=== PATIENT | male | born 1950 | race Caucasian/White ===

== ENCOUNTER 2019-10-09 22:06 | Inpatient (IN) | payer OTHER, BC ==
--- OUTSIDE RECORDS SUMMARY | 2019-10-09 22:08 | XMS REPORT ---
:1950 Author Organization [facility] Address [address] [place] [address] Care Team Providers Name Role Phone JUANY GUNTER Unavailable Unavailable AYESHA VALENTINO Unavailable Unavailable Problems This patient has no known problems. Allergies, Adverse Reactions, Alerts This patient has no known allergies or adverse reactions. Medications This patient has no known medications. Results Test Description Test Time Test Comments Text Results Atomic Results Result Comments TISSUE EXAM 2017-05-22 09:25:00 Surgical Pathology Report Case: [id number] Authorizing Provider: Juany Gunter MD Collected: 05/20/2017 1401 Ordering Location: [facility] PERIOPERATIVE Received: 05/20/2017 1623 SERVICES Pathologist: J Luis Leavitt MD Specimen: Appendix APPENDIX, LAPAROSCOPIC APPENDECTOMY: - CHRONIC INFLAMMATION, FIBROSIS, AND FAT NECROSIS OF PERIAPPENDICEAL ADIPOSE TISSUE Signing Pathologist Direct Phone Line: [phone] signed by J Luis Leavitt MD on 05/22/2017 at 9:25 [id number] with abscessAppendix Received fresh labeled "appendix" is a 4.5 cm in length x 1.0 cm in diameter, focally disrupted, vermiform appendix with attached mesoappendix.The serosal surface is purple-mclean to red, dusky, ragged and exhibits fibrous adhesions. Sectioning reveals a dilated lumen containing clotted blood.Section code: A1, parallel resection margin; A2, fulfillment representative sections of appendix. DB/ewPerformed BASIC METABOLIC PANEL 2017-05-21 05:40:00 Test Item Value Reference Range Comments SODIUM (BEAKER) (test 136 meq/L 136-145 zzpt=627) POTASSIUM (BEAKER) (test 4.9 meq/L 3.5-5.1 zxvl=368) CHLORIDE (BEAKER) (test 109 meq/L 98-107 nxvv=073) CO2 (BEAKER) (test ihmn=034) 19 meq/L 22-29 BLOOD UREA NITROGEN (BEAKER) 21 mg/dL 7-21 (test dhos=160) CREATININE (BEAKER) (test 1.22 mg/dL 0.57-1.25 oqoa=809) GLUCOSE RANDOM (BEAKER) 131 mg/dL 70-105 (test geyp=593) CALCIUM (BEAKER) (test 8.2 mg/dL 8.4-10.2 yokh=084) EGFR (BEAKER) (test 59 mL/min/1.73 sq m ESTIMATED GFR IS NOT aiee=5185) ACCURATE CREATININE CLEARANCE IN PREDICTING GLOMERULAR FILTRATION RATE. ESTIMATED GFR IS NOT APPLICABLE FOR DIALYSIS PATIENTS. CBC (HEMOGRAM ONLY)2017-05-21 05:35:00 Test Item Value Reference Range Comments WHITE BLOOD CELL COUNT (BEAKER) (test evmp=225) 11.1 K/ L 3.5-10.5 RED BLOOD CELL COUNT (BEAKER) (test llxj=362) 3.99 M/ L 4.63-6.08 HEMOGLOBIN (BEAKER) (test lujl=196) 12.4 GM/DL 13.7-17.5 HEMATOCRIT (BEAKER) (test uyjh=302) 36.8 % 40.1-51.0 MEAN CORPUSCULAR VOLUME (BEAKER) (test acmd=423) 92.2 fL 79.0-92.2 MEAN CORPUSCULAR HEMOGLOBIN (BEAKER) (test 31.1 pg 25.7-32.2 nrid=726) MEAN CORPUSCULAR HEMOGLOBIN CONC (BEAKER) (test 33.7 GM/DL 32.3-36.5 cdwa=459) RED CELL DISTRIBUTION WIDTH (BEAKER) (test 14.6 % 11.6-14.4 vxtg=455) PLATELET COUNT (BEAKER) (test bubx=534) 145 K/CU MM 150-450 MEAN PLATELET VOLUME (BEAKER) (test xruv=162) 9.6 fL 9.4-12.4 NUCLEATED RED BLOOD CELLS (BEAKER) (test 0 /100 WBC 0-0 wzno=775) HEPATIC FUNCTION [id number] 10:48:00 Test Item Value Reference Range Comments TOTAL PROTEIN (BEAKER) (test wxxi=558) 8.3 gm/dL 6.0-8.3 ALBUMIN (BEAKER) (test gvar=9029) 4.0 g/dL 3.5-5.0 BILIRUBIN TOTAL (BEAKER) (test ygzm=177) 0.9 mg/dL 0.2-1.2 BILIRUBIN DIRECT (BEAKER) (test wnly=503) 0.4 mg/dL 0.1-0.5 ALKALINE PHOSPHATASE (BEAKER) (test wptq=335) 49 U/L 40-150 AST (SGOT) (BEAKER) (test aywh=051) 30 U/L 5-34 ALT (SGPT) (BEAKER) (test mykm=449) 30 U/L 6-55 BASIC METABOLIC [id number] 10:48:00 Test Item Value Reference Range Comments SODIUM (BEAKER) (test 135 meq/L 136-145 jyhm=351) POTASSIUM (BEAKER) (test 4.0 meq/L 3.5-5.1 zpnm=475) CHLORIDE (BEAKER) (test 105 meq/L 98-107 kxaw=347) CO2 (BEAKER) (test 22 meq/L 22-29 xayo=649) BLOOD UREA NITROGEN 19 mg/dL 7-21 (BEAKER) (test mfhi=885) CREATININE (BEAKER) (test 1.19 mg/dL 0.57-1.25 mukz=848) GLUCOSE RANDOM (BEAKER) 104 mg/dL 70-105 (test fetg=524) CALCIUM (BEAKER) (test 8.8 mg/dL 8.4-10.2 ukap=539) EGFR (BEAKER) (test 61 mL/min/1.73 sq m ESTIMATED GFR IS NOT mtbo=6671) ACCURATE CREATININE CLEARANCE IN PREDICTING GLOMERULAR FILTRATION RATE. ESTIMATED GFR IS NOT APPLICABLE FOR DIALYSIS PATIENTS. CBC W/PLT COUNT & AUTO [id number] 10:41:00 Test Item Value Reference Range Comments WHITE BLOOD CELL COUNT (BEAKER) (test mudr=359) 7.1 K/ L 3.5-10.5 RED BLOOD CELL COUNT (BEAKER) (test kxzu=628) 4.68 M/ L 4.63-6.08 HEMOGLOBIN (BEAKER) (test ikxz=107) 14.5 GM/DL 13.7-17.5 HEMATOCRIT (BEAKER) (test rwxt=085) 43.0 % 40.1-51.0 MEAN CORPUSCULAR VOLUME (BEAKER) (test xwwn=091) 91.9 fL 79.0-92.2 MEAN CORPUSCULAR HEMOGLOBIN (BEAKER) (test 31.0 pg 25.7-32.2 iwex=478) MEAN CORPUSCULAR HEMOGLOBIN CONC (BEAKER) (test 33.7 GM/DL 32.3-36.5 stvr=578) RED CELL DISTRIBUTION WIDTH (BEAKER) (test 14.6 % 11.6-14.4 ntqh=271) PLATELET COUNT (BEAKER) (test hpkk=687) 175 K/CU MM 150-450 MEAN PLATELET VOLUME (BEAKER) (test dzyo=398) 9.5 fL 9.4-12.4 NUCLEATED RED BLOOD CELLS (BEAKER) (test 0 /100 WBC 0-0 zusx=417) NEUTROPHILS RELATIVE PERCENT (BEAKER) (test 42 % ujjp=678) LYMPHOCYTES RELATIVE PERCENT (BEAKER) (test 45 % jmva=601) MONOCYTES RELATIVE PERCENT (BEAKER) (test 11 % rxgd=181) EOSINOPHILS RELATIVE PERCENT (BEAKER) (test 2 % zqcu=572) BASOPHILS RELATIVE PERCENT (BEAKER) (test 1 % jruv=881) NEUTROPHILS ABSOLUTE COUNT (BEAKER) (test 2.96 K/ L 1.78-5.38 arve=979) LYMPHOCYTES ABSOLUTE COUNT (BEAKER) (test 3.20 K/ L 1.32-3.57 pttc=639) MONOCYTES ABSOLUTE COUNT (BEAKER) (test 0.75 K/ L 0.30-0.82 gclv=595) EOSINOPHILS ABSOLUTE COUNT (BEAKER) (test 0.14 K/ L 0.04-0.54 xlmt=586) BASOPHILS ABSOLUTE COUNT (BEAKER) (test 0.06 K/ L 0.01-0.08 chfm=836) IMMATURE GRANULOCYTES-RELATIVE PERCENT (BEAKER) 0 % 0-1 (test acru=8742) [id number] 10:23:00 Test Item Value Reference Range Comments PARTIAL THROMBOPLASTIN TIME (BEAKER) (test 28.3 seconds 22.5-36.0 ixnt=418) PROTHROMBIN [id number] 10:22:00 Test Item Value Reference Range Comments PROTIME (BEAKER) (test gwsm=365) 13.5 seconds 11.7-14.7 INR (BEAKER) (test zwtj=892) 1.0 <=5.9 RECOMMENDED COUMADIN/WARFARIN INR THERAPY RANGESSTANDARD DOSE: 2.0 - 3.0 Includes: PROPHYLAXIS forvenous thrombosis, systemic embolization; TREATMENT for venous thrombosis and/or pulmonary embolus.HIGH RISK: Target INR is 2.5-3.5 for patients with mechanical heart valves.[id number] 17:52:00 Test Item Value Reference Range Comments SODIUM (BEAKER) (test egfh=311) 138 meq/L 136-145 POTASSIUM (BEAKER) (test fryg=228) 4.5 meq/L 3.5-5.1 CHLORIDE (BEAKER) (test sbru=307) 104 meq/L 98-107 CO2 (BEAKER) (test joom=147) 23 meq/L 22-29 [id number] 17:34:00 Test Item Value Reference Range Comments GLUCOSE RANDOM (BEAKER) (test fhos=550) 105 mg/dL 70-105 Effective 08/17/2014: Reference Range Change-Adult onlyNew: 70-105 Previous : 70-110BUN AND [id number] 17:34:00 Test Item Value Reference Range Comments BLOOD UREA NITROGEN 16 mg/dL 7-21 (BEAKER) (test wypd=844) CREATININE (BEAKER) (test 1.05 mg/dL 0.57-1.25 axqz=694) EGFR (BEAKER) (test 70 mL/min/1.73 sq m ESTIMATED GFR IS NOT ratk=8571) ACCURATE CREATININE CLEARANCE IN PREDICTING GLOMERULAR FILTRATION RATE. ESTIMATED GFR IS NOT APPLICABLE FOR DIALYSIS PATIENTS. [id number] 16:54:00 Test Item Value Reference Range Comments HEMOGLOBIN (BEAKER) (test xwka=412) 13.7 GM/DL 13.7-17.5 BLOOD [id number] 06:00:00 Test Item Value Reference Range Comments CULTURE (BEAKER) (test gcin=1380) No growth in 5 days BLOOD [id number] 06:00:00 Test Item Value Reference Range Comments CULTURE (BEAKER) (test ipgt=7984) No growth in 5 days BODY FLUID CULTURE + GRAM [id number] 10:22:00 Test Item Value Reference Range Comments CULTURE (BEAKER) (test ESCHERICHIA COLI 3+ Escherichia coli hkwe=0108) Amikacin (test code=1) Ampicillin + Sulbactam (test code=6) Aztreonam (test code=32) Cefazolin (test code=9) Cefepime (test code=51) Cefoxitin (test code=68) Ceftazidime (test code=27) Ceftriaxone (test code=52) Ertapenem (test code=38) Gentamicin (test code=18) Levofloxacin (test code=22) Meropenem (test code=34) Nitrofurantoin (test code=23) Piperacillin + Tazobactam (test code=29) Tetracycline (test code=2) Tigecycline (test srau=398) Tobramycin (test code=25) Trimethoprim + Sulfamethoxazole (test code=47) CULTURE (BEAKER) (test 2+ Actinomyces species tzyi=4630) CULTURE (BEAKER) (test 2+ Viridans dyfu=8872) Streptococcus GRAM STAIN RESULT (BEAKER) 3+ WBCs (test kyue=1592) GRAM STAIN RESULT (BEAKER) 2+ gram positive (test cyzm=492611) branching rods GRAM STAIN RESULT (BEAKER) 3+ gram positive (test ftor=156461) cocci in chains and clusters GRAM STAIN RESULT (BEAKER) 1+ gram negative rods (test uqlb=565325) [id number] 05:29:00 Test Item Value Reference Range Comments PHOSPHORUS (BEAKER) (test firl=800) 3.0 mg/dL 2.3-4.7 [id number] 05:29:00 Test Item Value Reference Range Comments MAGNESIUM (BEAKER) (test fyce=559) 1.7 mg/dL 1.6-2.6 BASIC METABOLIC [id number] 05:29:00 Test Item Value Reference Range Comments SODIUM (BEAKER) (test 137 meq/L 136-145 sbeg=105) POTASSIUM (BEAKER) (test 3.6 meq/L 3.5-5.1 kplt=601) CHLORIDE (BEAKER) (test 104 meq/L 98-107 ahpr=545) CO2 (BEAKER) (test 24 meq/L 22-29 qqur=612) BLOOD UREA NITROGEN 12 mg/dL 7-21 (BEAKER) (test sdjk=944) CREATININE (BEAKER) (test 0.85 mg/dL 0.57-1.25 lcsc=065) GLUCOSE RANDOM (BEAKER) 98 mg/dL 70-105 (test wbxm=097) CALCIUM (BEAKER) (test 8.0 mg/dL 8.4-10.2 lsup=488) EGFR (BEAKER) (test 90 mL/min/1.73 sq m ESTIMATED GFR IS NOT npdk=4146) ACCURATE CREATININE CLEARANCE IN PREDICTING GLOMERULAR FILTRATION RATE. ESTIMATED GFR IS NOT APPLICABLE FOR DIALYSIS PATIENTS. CBC (HEMOGRAM ONLY)2017-02-27 05:12:00 Test Item Value Reference Range Comments WHITE BLOOD CELL COUNT (BEAKER) (test hdko=695) 9.6 K/ L 4.0-10.0 RED BLOOD CELL COUNT (BEAKER) (test tvjq=974) 3.74 M/ L 4.20-5.80 HEMOGLOBIN (BEAKER) (test cclb=020) 11.7 GM/DL 13.0-16.8 HEMATOCRIT (BEAKER) (test tjfe=757) 36.4 % 40.0-50.0 MEAN CORPUSCULAR VOLUME (BEAKER) (test iwro=831) 97.3 fL 82.0-98.0 MEAN CORPUSCULAR HEMOGLOBIN (BEAKER) (test 31.3 pg 27.0-33.0 atru=015) MEAN CORPUSCULAR HEMOGLOBIN CONC (BEAKER) (test 32.2 GM/DL 32.0-36.0 pmhe=174) RED CELL DISTRIBUTION WIDTH (BEAKER) (test 14.7 % 10.3-14.2 fywd=757) PLATELET COUNT (BEAKER) (test vwhh=890) 236 K/CU MM 150-430 MEAN PLATELET VOLUME (BEAKER) (test olup=448) 6.3 fL 6.5-10.5 NUCLEATED RED BLOOD CELLS (BEAKER) (test 0 /100 WBC 0-0 jsln=872) 0.00CBC W/PLT COUNT & AUTO [id number] 01:59:00 Test Item Value Reference Range Comments WHITE BLOOD CELL COUNT (BEAKER) (test vmdg=684) 18.9 K/ L 4.0-10.0 RED BLOOD CELL COUNT (BEAKER) (test ahmt=882) 4.83 M/ L 4.20-5.80 HEMOGLOBIN (BEAKER) (test fsxl=694) 14.8 GM/DL 13.0-16.8 HEMATOCRIT (BEAKER) (test ehvv=498) 46.7 % 40.0-50.0 MEAN CORPUSCULAR VOLUME (BEAKER) (test xmhz=620) 96.6 fL 82.0-98.0 MEAN CORPUSCULAR HEMOGLOBIN (BEAKER) (test 30.6 pg 27.0-33.0 grco=507) MEAN CORPUSCULAR HEMOGLOBIN CONC (BEAKER) (test 31.7 GM/DL 32.0-36.0 kpks=194) RED CELL DISTRIBUTION WIDTH (BEAKER) (test 15.5 % 10.3-14.2 lgqn=469) PLATELET COUNT (BEAKER) (test txmg=937) 316 K/CU MM 150-430 MEAN PLATELET VOLUME (BEAKER) (test pemz=975) 6.4 fL 6.5-10.5 NUCLEATED RED BLOOD CELLS (BEAKER) (test 0 /100 WBC 0-0 dqwt=211) NEUTROPHILS RELATIVE PERCENT (BEAKER) (test 84 % wqxa=826) LYMPHOCYTES RELATIVE PERCENT (BEAKER) (test 11 % grdi=673) MONOCYTES RELATIVE PERCENT (BEAKER) (test 5 % xguq=789) EOSINOPHILS RELATIVE PERCENT (BEAKER) (test 0 % hwvm=135) BASOPHILS RELATIVE PERCENT (BEAKER) (test 0 % ybvo=288) NEUTROPHILS ABSOLUTE COUNT (BEAKER) (test 15.70 K/ L 1.80-8.00 hzyf=842) LYMPHOCYTES ABSOLUTE COUNT (BEAKER) (test 2.14 K/ L 1.48-4.50 jjvk=760) MONOCYTES ABSOLUTE COUNT (BEAKER) (test 0.93 K/ L 0.00-1.30 udhm=604) EOSINOPHILS ABSOLUTE COUNT (BEAKER) (test 0.03 K/ L 0.00-0.50 zmiu=823) BASOPHILS ABSOLUTE COUNT (BEAKER) (test 0.01 K/ L 0.00-0.20 yzap=762) 0.000.610.000.000.550.000.000.000.000.000.000.000.000.000.500.000.000.000.00[facility] [id number] 01:50:00 Test Item Value Reference Range Comments MAGNESIUM (BEAKER) (test xgsl=723) 1.4 mg/dL 1.6-2.6 [id number] 01:50:00 Test Item Value Reference Range Comments PHOSPHORUS (BEAKER) (test ajtg=324) 2.5 mg/dL 2.3-4.7 BASIC METABOLIC [id number] 01:50:00 Test Item Value Reference Range Comments SODIUM (BEAKER) (test 134 meq/L 136-145 nnjl=015) POTASSIUM (BEAKER) (test 3.9 meq/L 3.5-5.1 xusg=953) CHLORIDE (BEAKER) (test 104 meq/L 98-107 luwk=264) CO2 (BEAKER) (test 21 meq/L 22-29 ryuq=519) BLOOD UREA NITROGEN 7 mg/dL 7-21 (BEAKER) (test zomx=201) CREATININE (BEAKER) (test 0.95 mg/dL 0.57-1.25 owtc=138) GLUCOSE RANDOM (BEAKER) 131 mg/dL 70-105 (test lstk=682) CALCIUM (BEAKER) (test 8.2 mg/dL 8.4-10.2 zjbl=506) EGFR (BEAKER) (test 79 mL/min/1.73 sq m ESTIMATED GFR IS NOT jnlp=9911) ACCURATE CREATININE CLEARANCE IN PREDICTING GLOMERULAR FILTRATION RATE. ESTIMATED GFR IS NOT APPLICABLE FOR DIALYSIS PATIENTS. T4, [id number] 07:12:00 Test Item Value Reference Range Comments FREE T4 (BEAKER) (test pxye=566) 0.99 ng/dL 0.70-1.48 CBC W/PLT COUNT & AUTO [id number] 06:55:00 Test Item Value Reference Range Comments WHITE BLOOD CELL COUNT (BEAKER) (test caup=142) 11.5 K/ L 4.0-10.0 RED BLOOD CELL COUNT (BEAKER) (test xuyq=634) 4.03 M/ L 4.20-5.80 HEMOGLOBIN (BEAKER) (test fnsr=494) 12.3 GM/DL 13.0-16.8 HEMATOCRIT (BEAKER) (test atxt=231) 38.9 % 40.0-50.0 MEAN CORPUSCULAR VOLUME (BEAKER) (test lnin=935) 96.6 fL 82.0-98.0 MEAN CORPUSCULAR HEMOGLOBIN (BEAKER) (test 30.6 pg 27.0-33.0 rdlj=726) MEAN CORPUSCULAR HEMOGLOBIN CONC (BEAKER) (test 31.7 GM/DL 32.0-36.0 hmsw=387) RED CELL DISTRIBUTION WIDTH (BEAKER) (test 15.2 % 10.3-14.2 jiqp=100) PLATELET COUNT (BEAKER) (test cxmu=231) 251 K/CU MM 150-430 MEAN PLATELET VOLUME (BEAKER) (test vrez=543) 6.3 fL 6.5-10.5 NUCLEATED RED BLOOD CELLS (BEAKER) (test 0 /100 WBC 0-0 wpxa=047) NEUTROPHILS RELATIVE PERCENT (BEAKER) (test 74 % ntrv=854) LYMPHOCYTES RELATIVE PERCENT (BEAKER) (test 16 % eicw=684) MONOCYTES RELATIVE PERCENT (BEAKER) (test 9 % qfbi=024) EOSINOPHILS RELATIVE PERCENT (BEAKER) (test 1 % taom=533) BASOPHILS RELATIVE PERCENT (BEAKER) (test 1 % pmgy=592) NEUTROPHILS ABSOLUTE COUNT (BEAKER) (test 8.49 K/ L 1.80-8.00 aate=209) LYMPHOCYTES ABSOLUTE COUNT (BEAKER) (test 1.80 K/ L 1.48-4.50 uymk=465) MONOCYTES ABSOLUTE COUNT (BEAKER) (test 0.98 K/ L 0.00-1.30 kuth=232) EOSINOPHILS ABSOLUTE COUNT (BEAKER) (test 0.13 K/ L 0.00-0.50 mdpx=614) BASOPHILS ABSOLUTE COUNT (BEAKER) (test 0.06 K/ L 0.00-0.20 qssd=631) 0.00TSH/FREE T4 IF [id number] 06:20:00 Test Item Value Reference Range Comments THYROID STIMULATING HORMONE (BEAKER) (test 7.55 uIU/mL 0.35-4.94 ylqk=153) [id number] 05:53:00 Test Item Value Reference Range Comments PHOSPHORUS (BEAKER) (test uwny=872) 2.9 mg/dL 2.3-4.7 [id number] 05:53:00 Test Item Value Reference Range Comments MAGNESIUM (BEAKER) (test seer=973) 1.6 mg/dL 1.6-2.6 BASIC METABOLIC [id number] 05:53:00 Test Item Value Reference Range Comments SODIUM (BEAKER) (test 138 meq/L 136-145 fczo=806) POTASSIUM (BEAKER) (test 3.6 meq/L 3.5-5.1 xyhi=360) CHLORIDE (BEAKER) (test 107 meq/L 98-107 xnig=568) CO2 (BEAKER) (test 23 meq/L 22-29 mmem=139) BLOOD UREA NITROGEN 8 mg/dL 7-21 (BEAKER) (test zqhk=909) CREATININE (BEAKER) (test 0.90 mg/dL 0.57-1.25 flnd=421) GLUCOSE RANDOM (BEAKER) 101 mg/dL 70-105 (test yojy=189) CALCIUM (BEAKER) (test 8.0 mg/dL 8.4-10.2 zdqa=811) EGFR (BEAKER) (test 84 mL/min/1.73 sq m ESTIMATED GFR IS NOT jxjr=8483) ACCURATE CREATININE CLEARANCE IN PREDICTING GLOMERULAR FILTRATION RATE. ESTIMATED GFR IS NOT APPLICABLE FOR DIALYSIS PATIENTS. PROTHROMBIN [id number] 18:32:00 Test Item Value Reference Range Comments PROTIME (BEAKER) (test ldae=988) 15.5 seconds 11.7-14.7 INR (BEAKER) (test kadc=958) 1.2 <=5.9 RECOMMENDED COUMADIN/WARFARIN INR THERAPY RANGESSTANDARD DOSE: 2.0 - 3.0 Includes: PROPHYLAXIS forvenous thrombosis, systemic embolization; TREATMENT for venous thrombosis and/or pulmonary embolus.HIGH RISK: Target INR is 2.5-3.5 for patients with mechanical heart valves.BASIC METABOLIC [id number] 15:20: 00 Test Item Value Reference Range Comments SODIUM (BEAKER) (test 140 meq/L 136-145 bjax=602) POTASSIUM (BEAKER) (test 3.5 meq/L 3.5-5.1 tqdw=776) CHLORIDE (BEAKER) (test 109 meq/L 98-107 jott=547) CO2 (BEAKER) (test 23 meq/L 22-29 hgoa=701) BLOOD UREA NITROGEN 7 mg/dL 7-21 (BEAKER) (test lnma=607) CREATININE (BEAKER) (test 0.84 mg/dL 0.57-1.25 tfkw=235) GLUCOSE RANDOM (BEAKER) 111 mg/dL 70-105 (test jnnb=378) CALCIUM (BEAKER) (test 8.1 mg/dL 8.4-10.2 zoqp=516) EGFR (BEAKER) (test 91 mL/min/1.73 sq m ESTIMATED GFR IS NOT ghck=5287) ACCURATE CREATININE CLEARANCE IN PREDICTING GLOMERULAR FILTRATION RATE. ESTIMATED GFR IS NOT APPLICABLE FOR DIALYSIS PATIENTS. CBC W/PLT COUNT & AUTO [id number] 15:03:00 Test Item Value Reference Range Comments WHITE BLOOD CELL COUNT (BEAKER) (test fdhq=065) 10.6 K/ L 4.0-10.0 RED BLOOD CELL COUNT (BEAKER) (test wyrx=144) 4.07 M/ L 4.20-5.80 HEMOGLOBIN (BEAKER) (test aljw=649) 13.1 GM/DL 13.0-16.8 HEMATOCRIT (BEAKER) (test pgeh=799) 39.1 % 40.0-50.0 MEAN CORPUSCULAR VOLUME (BEAKER) (test hagr=202) 96.1 fL 82.0-98.0 MEAN CORPUSCULAR HEMOGLOBIN (BEAKER) (test 32.2 pg 27.0-33.0 yksk=959) MEAN CORPUSCULAR HEMOGLOBIN CONC (BEAKER) (test 33.5 GM/DL 32.0-36.0 eitd=204) RED CELL DISTRIBUTION WIDTH (BEAKER) (test 13.5 % 10.3-14.2 noth=144) PLATELET COUNT (BEAKER) (test zhkg=574) 261 K/CU MM 150-430 MEAN PLATELET VOLUME (BEAKER) (test rklr=371) 6.0 fL 6.5-10.5 NUCLEATED RED BLOOD CELLS (BEAKER) (test 0 /100 WBC 0-0 qcmz=363) NEUTROPHILS RELATIVE PERCENT (BEAKER) (test 73 % uifm=343) LYMPHOCYTES RELATIVE PERCENT (BEAKER) (test 17 % kjbt=952) MONOCYTES RELATIVE PERCENT (BEAKER) (test 8 % jtds=666) EOSINOPHILS RELATIVE PERCENT (BEAKER) (test 2 % jtrq=495) BASOPHILS RELATIVE PERCENT (BEAKER) (test 0 % ygqc=010) NEUTROPHILS ABSOLUTE COUNT (BEAKER) (test 7.72 K/ L 1.80-8.00 rmrh=741) LYMPHOCYTES ABSOLUTE COUNT (BEAKER) (test 1.79 K/ L 1.48-4.50 imgg=045) MONOCYTES ABSOLUTE COUNT (BEAKER) (test 0.90 K/ L 0.00-1.30 kqtd=041) EOSINOPHILS ABSOLUTE COUNT (BEAKER) (test 0.17 K/ L 0.00-0.50 dfqo=976) BASOPHILS ABSOLUTE COUNT (BEAKER) (test 0.02 K/ L 0.00-0.20 hwau=552) 0.00
[2019-10-09] MEDS ORDERED: FAMOTIDINE 20 MG/2 ML VIAL IV ONE (23:13)
[2019-10-09] MEDS ORDERED: MORPHINE 2 MG/ML SYR ONE ×2 (23:13→23:57)
[2019-10-09] MEDS ORDERED: NA CHLORIDE 0.9% 1,000 ML ONE (23:13)
[2019-10-09 23:14] LABS: Absolute Lymphocytes (CBC) 1.5 K/uL (0.7-4.9); Basophils % 0.8 % (0-1.3); Hematocrit 40.4 % (39.6-49.0); MPV 7.7 fL (7.6-11.3); RBC Red Blood Cell Count 4.27 M/uL (4.33-5.43)
[2019-10-09 23:33] LABS: Albumin 3.6 g/dL (3.4-5.0); Bilirubin Direct 0.4 mg/dL (0-0.2); Bilirubin Total 1.1 mg/dL (0.2-1.0); Potassium 3.8 mmol/L (3.5-5.1); Protein, Total 8.1 g/dL (6.4-8.2)
[2019-10-10] MEDS ORDERED: NA CHLORIDE 0.9% 1,000 ML ONE (00:12)
[2019-10-10] MEDS ORDERED: MORPHINE 2 MG/ML SYR ONE (01:36)
--- NOTE | 2019-10-10 03:18 | EDPHYS ---
Physician Documentation [facility] Name: Itz Bates Age: 69 yrs Sex: Male : 1950 Arrival Date: 10/09/2019 Time: 22:11 Bed 7 Private MD: ED Physician Nathan Robert HPI: 10/10 00:37 This 69 yrs old Male presents to ER via Wheelchair with complaints of kdr Abdominal Pain. 00:37 The patient presents with abdominal pain in the epigastric area, in the upper abdomen. kdr Onset: The symptoms/episode began/occurred this morning. The symptoms radiate to left back, left trapezius and left scapular area. Associated signs and symptoms: Pertinent positives: nausea, Pertinent negatives: chest pain, constipation, diarrhea, palpitations, shortness of breath, testicular pain, vomiting, vomiting blood. The symptoms are described as achy, crampy, steady, vague. Modifying factors: The symptoms are alleviated by nothing, the symptoms are aggravated by nothing. Severity of pain: At its worst the pain was mild just prior to arrival, in the emergency department the pain is unchanged. The patient has not experienced similar symptoms in the past. The patient has not recently seen a physician. Historical: - Allergies: 10/09 22:21 NKDA; mg2 - Home Meds: 22:21 furosemide 40 mg Oral tab 1 tab 2 times per day [Active]; levothyroxine 50 mcg tab 1 mg2 tab once daily [Active]; losartan 100 mg Oral tab [Active]; potassium chloride 20 mEq Oral TbER 1 tab once daily [Active]; pravastatin 40 mg Oral tab 1 tab once daily [Active]; Xarelto 20 mg Oral tab 1 tab once daily [Active]; - PMHx: 22:21 CHF; Hypertension; Pacemaker; mg2 - PSHx: 22:21 Appendectomy; open heart surgery; mg2 - Immunization history:: Flu vaccine is up to date. - Social history:: Smoking status: Patient/guardian denies using tobacco, Patient uses alcohol, on a daily basis. Patient/guardian denies using street drugs, IV drugs. - Ebola Screening: : No symptoms or risks identified at this time. ROS: 10/10 00:37 Constitutional: Negative for fever, chills, and weight loss, Eyes: Negative for injury, kdr pain, redness, and discharge, Neck: Negative for injury, pain, and swelling, Cardiovascular: Negative for chest pain, palpitations, and edema, Respiratory: Negative for shortness of breath, cough, wheezing, and pleuritic chest pain, Back: Negative for injury and pain, : Negative for injury, bleeding, discharge, and swelling, MS/Extremity: Negative for injury and deformity, Skin: Negative for injury, rash, and discoloration, Neuro: Negative for headache, weakness, numbness, tingling, and seizure activity. Psych: Negative for depression, anxiety, suicide ideation, homicidal ideation, and hallucinations, Allergy/Immunology: Negative for hives, rash, and allergies, Endocrine: Negative for neck swelling, polydipsia, polyuria, polyphagia, and marked weight changes, Hematologic/Lymphatic: Negative for swollen nodes, abnormal bleeding, and unusual bruising. Abdomen/GI: Positive for abdominal pain, nausea, Negative for constipation, abdominal cramps, abdominal distension, anorexia, dysphagia, hematemesis, black/tarry stool, rectal pain, flatulence. Exam: 00:37 Constitutional: This is a well developed, well nourished patient who is awake, alert, kdr and in no acute distress. Head/Face: Normocephalic, atraumatic. Eyes: Pupils equal round and reactive to light, extra-ocular motions intact. Lids and lashes normal. Conjunctiva and sclera are non-icteric and not injected. Cornea within normal limits. Periorbital areas with no swelling, redness, or edema. Neck: Trachea midline, no thyromegaly or masses palpated, and no cervical lymphadenopathy. Supple, full range of motion without nuchal rigidity, or vertebral point tenderness. No Meningismus. Chest/axilla: Normal chest wall appearance and motion. Nontender with no deformity. No lesions are appreciated. Cardiovascular: Regular rate and rhythm with a normal S1 and S2. No gallops, murmurs, or rubs. Normal PMI, no JVD. No pulse deficits. Respiratory: Lungs have equal breath sounds bilaterally, clear to auscultation and percussion. No rales, rhonchi or wheezes noted. No increased work of breathing, no retractions or nasal flaring. Back: No spinal tenderness. No costovertebral tenderness. Full range of motion. Skin: Warm, dry with normal turgor. Normal color with no rashes, no lesions, and no evidence of cellulitis. MS/ Extremity: Pulses equal, no cyanosis. Neurovascular intact. Full, normal range of motion. Neuro: Awake and alert, GCS 15, oriented to person, place, time, and situation. Cranial nerves II-XII grossly intact. Motor strength 5/5 in all extremities. Sensory grossly intact. Cerebellar exam normal. Normal gait. Psych: Awake, alert, with orientation to person, place and time. Behavior, mood, and affect are within normal limits. 00:37 Abdomen/GI: Inspection: distension, obese Bowel sounds: diminished, in all quadrants, Palpation: soft, mild abdominal tenderness, in the epigastric area, right upper quadrant and left upper quadrant. Vital Signs: 10/09 22:19 BP 138 / 89; Pulse 71; Resp 18; Temp 98.3; Pulse Ox 100% on R/A; Weight 154.22 kg; mg2 Height 6 ft. 1 in. (185.42 cm); Pain 10/10; 23:00 BP 145 / 50; Pulse 73; Resp 18; Pulse Ox 97% on R/A; Pain 10/10; lp1 23:45 BP 151 / 61; Pulse 79; Resp 18; Pulse Ox 95% on R/A; lp1 10/10 00:15 BP 161 / 81; Pulse 84; Resp 18; Pulse Ox 94% on 2 lpm NC; lp1 01:30 BP 157 / 87; Pulse 83; Resp 18; Pulse Ox 95% on 2 lpm NC; lp1 02:15 BP 153 / 77; Pulse 89; Resp 18; Pulse Ox 95% on 2 lpm NC; lp1 03:00 BP 159 / 76; Pulse 88; Resp 20; Pulse Ox 95% on 2 lpm NC; lp1 03:45 BP 150 / 84; Pulse 85; Resp 18; Pulse Ox 95% on 2 lpm NC; lp1 04:30 BP 156 / 93; Pulse 88; Resp 18; Temp 97.6(O); Pulse Ox 97% on 2 lpm NC; lp1 10/09 22:19 Body Mass Index 44.86 (154.22 kg, 185.42 cm) mg2 MDM: 00:37 Data reviewed: vital signs, nurses notes, lab test result(s). Counseling: I had a kdr detailed discussion with the patient and/or guardian regarding: the historical points, exam findings, and any diagnostic results supporting the discharge/admit diagnosis, lab results, radiology results. 03:18 Patient medically screened. [facility] 10/09 22:36 Order name: Basic Metabolic Panel; Complete Time: 00:42 kdr 10/09 22:36 Order name: CBC with Diff; Complete Time: 00:42 kdr 10/09 22:36 Order name: Creatinine for Radiology; Complete Time: 00:42 kdr 10/09 22:36 Order name: Hepatic Function; Complete Time: 00:42 kdr 10/09 22:36 Order name: Lipase; Complete Time: 00:42 kdr 10/09 23:55 Order name: CT Abd/Pelvis - IV Contrast Only kdr 10/09 22:36 Order name: IV Saline Lock; Complete Time: 23:07 kdr 10/09 22:36 Order name: Labs collected and sent; Complete Time: 23:07 kdr Administered Medications: 10/09 23:20 Drug: NS 0.9% 1000 ml Route: IV; Rate: 1 bolus; Site: right antecubital; 1 10/10 00:12 Follow up: IV Status: Completed infusion; IV Intake: 1000ml 1 10/09 23:20 Drug: morphine 4 mg Route: IVP; Site: right antecubital; 1 10/10 00:00 Follow up: Response: Pain is decreased 1 10/09 23:20 Drug: Pepcid 20 mg Route: IVP; Site: right antecubital; 1 10/10 00:00 Follow up: Response: No adverse reaction 1 10/09 23:59 Drug: morphine 4 mg {Note: RASS 0.} Route: IVP; Site: right antecubital; 1 10/10 00:11 Follow up: Response: Pain is decreased; RASS: Drowsy (-1) lp1 00:12 Drug: NS 0.9% 1000 ml Route: IV; Rate: 1 bolus; Site: right antecubital; 1 01:54 Follow up: IV Status: Completed infusion; IV Intake: 1000ml lp1 01:38 Drug: morphine 4 mg {Note: RASS 1.} Route: IVP; Site: right antecubital; 1 02:00 Follow up: Response: Pain is decreased; RASS: Alert and Calm (0) 1 Disposition: 10/10/19 03:18 Hospitalization ordered by Mac Patrick for Inpatient Admission. Preliminary diagnosis are Abdominal and pelvic pain, Cholecystitis. - Bed requested for Telemetry/MedSurg (Inpatient). - Status is Inpatient Admission. lp1 - Condition is Fair. - Problem is new. - Symptoms have improved. UTI on Admission? No Signatures: Dispatcher [employer] EDMS Nathan Robert MD MD kdr Nadja Rodriguez RN RN lp1 Ange Hanna RN RN Constantino Lundy RN RN mg2 Corrections: (The following items were deleted from the chart) 04:34 03:18 Hospitalization Ordered by Mac Patrick for Inpatient Admission. Preliminary cg diagnosis is Abdominal and pelvic pain; Cholecystitis. Bed requested for Telemetry/MedSurg (Inpatient). Status is Inpatient Admission. Condition is Fair. Problem is new. Symptoms have improved. UTI on Admission? No. kdr 04:57 04:34 10/10/2019 03:18 Hospitalization Ordered by Mac Patrick for Inpatient lp1 Admission. Preliminary diagnosis is Abdominal and pelvic pain; Cholecystitis. Bed requested for Telemetry/MedSurg (Inpatient). Status is Inpatient Admission. Condition is Fair. Problem is new. Symptoms have improved. UTI on Admission? No. cg
--- NOTE | 2019-10-10 03:18 | ER ---
Nurse's Notes [facility] Name: Itz Bates Age: 69 yrs Sex: Male : 1950 Arrival Date: 10/09/2019 Time: 22:11 Bed 7 Private MD: Diagnosis: Abdominal and pelvic pain;Cholecystitis Presentation: 10/09 22:16 Presenting complaint: Patient states: i came from a cruise today and and lindsey been mg2 having diffused abdominal pain since then. i felt clammy an hour ago. dernies chest pain and n/v. Transition of care: patient was not received from another setting of care. Onset of symptoms was October 09, 2019. Risk Assessment: Do you want to hurt yourself or someone else? Patient reports no desire to harm self or others. Initial Sepsis Screen: Does the patient meet any 2 criteria? No. Patient's initial sepsis screen is negative. Does the patient have a suspected source of infection? No. Patient's initial sepsis screen is negative. Care prior to arrival: None. 22:16 Method Of Arrival: Wheelchair mg2 22:16 Acuity: RAMON 3 mg2 Historical: - Allergies: 22:21 NKDA; mg2 - Home Meds: 22:21 furosemide 40 mg Oral tab 1 tab 2 times per day [Active]; levothyroxine 50 mcg tab 1 mg2 tab once daily [Active]; losartan 100 mg Oral tab [Active]; potassium chloride 20 mEq Oral TbER 1 tab once daily [Active]; pravastatin 40 mg Oral tab 1 tab once daily [Active]; Xarelto 20 mg Oral tab 1 tab once daily [Active]; - PMHx: 22:21 CHF; Hypertension; Pacemaker; mg2 - PSHx: 22:21 Appendectomy; open heart surgery; mg2 - Immunization history:: Flu vaccine is up to date. - Social history:: Smoking status: Patient/guardian denies using tobacco, Patient uses alcohol, on a daily basis. Patient/guardian denies using street drugs, IV drugs. - Ebola Screening: : No symptoms or risks identified at this time. Screenin:05 Abuse screen: Denies threats or abuse. Denies injuries from another. Nutritional lp1 screening: No deficits noted. Tuberculosis screening: No symptoms or risk factors identified. Fall Risk None identified. Assessment: 23:00 General: Appears uncomfortable, Behavior is appropriate for age. Pain: Complains of lp1 pain in right upper quadrant and left upper quadrant Pain radiates to back Pain currently is 10 out of 10 on a pain scale. Quality of pain is described as sharp, stabbing, Pain began gradually. Neuro: Level of Consciousness is awake, alert, obeys commands, Oriented to person, place, situation. Cardiovascular: Patient's skin is warm and dry. Respiratory: Respiratory effort is even, unlabored. GI: Abdomen is round Bowel sounds present X 4 quads. Abdomen is tender to palpation in right upper quadrant and left upper quadrant. : No signs and/or symptoms were reported regarding the genitourinary system. EENT: No signs and/or symptoms were reported regarding the EENT system. Derm: Skin is pink, warm \T\ dry. Musculoskeletal: No deficits noted. 10/10 00:12 Reassessment: While sleeping, patient 88% on RA; Patient placed on 2L via NC, O2 at 96%.lp1 00:24 Reassessment: Patient states pain decreased at this time; Aware of pending transfer to [facility] radiology for CT. 01:30 Reassessment: Patient returned from CT at this time; States pain to abdomen returning, lp1 Provider notified. 02:30 Reassessment: Patient appears in no apparent distress at this time. Patient and/or lp1 family updated on plan of care and expected duration. Pain level reassessed. Patient resting, eyes closed, respirations unlabored; daughter at bedside. 03:15 Reassessment: Dr. Robert at bedside to discuss results wit patient and daughter; lp1 Demonstrates understanding of pending admission and NPO status. 03:30 Reassessment: Family at bedside going home at this time; Contact info for daughters lp1 left with nurse; Tony- [phone]; Nisha- [phone]. 04:05 Reassessment: Dr. Patrick at bedside. 1 Vital Signs: 10/09 22:19 BP 138 / 89; Pulse 71; Resp 18; Temp 98.3; Pulse Ox 100% on R/A; Weight 154.22 kg; mg2 Height 6 ft. 1 in. (185.42 cm); Pain 07/09; 23:00 BP 145 / 50; Pulse 73; Resp 18; Pulse Ox 97% on R/A; Pain 07/09; lp1 23:45 BP 151 / 61; Pulse 79; Resp 18; Pulse Ox 95% on R/A; lp1 10/10 00:15 BP 161 / 81; Pulse 84; Resp 18; Pulse Ox 94% on 2 lpm NC; lp1 01:30 BP 157 / 87; Pulse 83; Resp 18; Pulse Ox 95% on 2 lpm NC; lp1 02:15 BP 153 / 77; Pulse 89; Resp 18; Pulse Ox 95% on 2 lpm NC; lp1 03:00 BP 159 / 76; Pulse 88; Resp 20; Pulse Ox 95% on 2 lpm NC; lp1 03:45 BP 150 / 84; Pulse 85; Resp 18; Pulse Ox 95% on 2 lpm NC; lp1 04:30 BP 156 / 93; Pulse 88; Resp 18; Temp 97.6(O); Pulse Ox 97% on 2 lpm NC; lp1 10/09 22:19 Body Mass Index 44.86 (154.22 kg, 185.42 cm) mg2 ED Course: 10/09 22:11 Patient arrived in ED. jg7 22:19 Triage completed. mg2 22:22 Arm band placed on. mg2 22:36 Nathan Robert MD is Attending Physician. kdr 22:41 Nadja Rodriguez, DEANNE is Primary Nurse. lp1 23:00 Initial lab(s) drawn, by me, sent to lab. Accessed ,peripheral vein via ultrasound, lp1 utilizing static ultrasound technique using ,sterile technique, per hospital protocol. Clean \T\ dry. Good blood return. Flushes easily. 20g IV to R AC. 23:05 Patient has correct armband on for positive identification. Placed in gown. Bed in low lp1 position. Pulse ox on. NIBP on. 10/10 02:36 CT Abd/Pelvis - IV Contrast Only In Process Unspecified. EDMS 03:17 Mac Patrick is Hospitalizing Provider. kdr 03:17 No provider procedures requiring assistance completed. lp1 04:37 Patient admitted, IV remains in place. lp1 Administered Medications: 10/09 23:20 Drug: NS 0.9% 1000 ml Route: IV; Rate: 1 bolus; Site: right antecubital; lp1 10/10 00:12 Follow up: IV Status: Completed infusion; IV Intake: 1000ml lp1 10/09 23:20 Drug: morphine 4 mg Route: IVP; Site: right antecubital; lp1 10/10 00:00 Follow up: Response: Pain is decreased lp1 10/09 23:20 Drug: Pepcid 20 mg Route: IVP; Site: right antecubital; lp1 10/10 00:00 Follow up: Response: No adverse reaction lp1 10/09 23:59 Drug: morphine 4 mg {Note: RASS 0.} Route: IVP; Site: right antecubital; lp1 10/10 00:11 Follow up: Response: Pain is decreased; RASS: Drowsy (-1) lp1 00:12 Drug: NS 0.9% 1000 ml Route: IV; Rate: 1 bolus; Site: right antecubital; lp1 01:54 Follow up: IV Status: Completed infusion; IV Intake: 1000ml lp1 01:38 Drug: morphine 4 mg {Note: RASS 1.} Route: IVP; Site: right antecubital; lp1 02:00 Follow up: Response: Pain is decreased; RASS: Alert and Calm (0) lp1 Intake: 00:12 IV: 1000ml; Total: 1000ml. lp1 01:54 IV: 1000ml; Total: 2000ml. lp1 Outcome: 03:18 Decision to Hospitalize by Provider. kdr 04:39 Condition: stable lp1 04:39 Instructed on the need for admit. 04:46 Admitted to Tele accompanied by tech, room 414, with chart, Report called to DEANNE Neumann lp1 04:57 Patient left the ED. lp1 Signatures: Dispatcher [employer] EDMS Nathan Robert MD MD kdr Pena, Laura, RN RN lp1 Constantino Lundy RN RN [facility] Evelyn Kauffmang7 Corrections: (The following items were deleted from the chart) 04:50 03:30 Reassessment: Family at bedside going home at this time; Contact info for lp1 daughters left with nurse; Tony- [phone]; Nisha- [phone] lp1
--- NOTE | 2019-10-10 04:20 | P.HP ---
Certification for Inpatient Patient admitted to: Inpatient With expected LOS: >2 Midnights Practitioner: I am a practitioner with admitting privileges, knowledge of patient current condition, hospital course, and medical plan of care. Services: Services provided to patient in accordance with Admission requirements found in Title 42 Section 412.3 of the Code of Federal Regulations Patient History Date of Service: 10/10/19 Reason for admission: Abdominal pain History of Present Illness: 69-year-old morbidly obese man with a history of congestive heart failure, unknown EF, hypertension and hyperlipidemia presented to emergency department with a complaint of abdominal pain of onset yesterday. Patient described diffuse abdominal pain, maximum intensity 10/10. He just returned from a cruise ship. He reports an episode of diarrhea on the cruise ship. He denied any fever, nausea or vomiting. CT abdomen and pelvis done in the ED report possible inflamed gallbladder. He has no leukocytosis and does not meet criteria for sepsis. Patient is admitted for further management. Allergies No Known Drug Lalit Allergy (Uncoded 02/23/17 06:45) Unknown No Known Drug Allergi Allergy (Uncoded 02/25/16 20:02) Unknown No Known Drug Allergies Allergy (Uncoded 10/21/17 03:31) Unknown Home Medications: Furosemide [Lasix*] 40 mg PO BID 10/10/19 Levothyroxine [Synthroid*] 50 mcg PO DAILY 10/10/19 Losartan Potassium 100 mg PO DAILY 10/10/19 Potassium Chloride 20 meq PO DAILY 10/10/19 Pravastatin Sodium 40 mg PO DAILY 10/10/19 Rivaroxaban [Xarelto*] 20 mg PO DAILY 10/10/19 - Past Medical/Surgical History Diabetic: No -: Hypertension -: Congestive heart failure -: Hypothyroidism -: Hyperlipidemia -: Presence of pacemaker -: Appendectomy -: Open-heart surgery -: Status post pacemaker - Family History Family History: Reviewed- Non-Contributory - Social History Smoking Status: Never smoker Alcohol use: Yes CD- Drugs: No Caffeine use: No Place of Residence: Home Review of Systems Other: General: No fever, no malaise, no unintentional weight loss. Eyes: No eye discharge, Respiratory: No cough, no shortness of breath. CVS: No chest pain, no palpitation, no lightheadedness. Genitourinary: No dysuria, no urinary frequency, no incontinence, no hematuria. Musculoskeletal: No joint pains, or joint swelling, no gait instability. Neurology: No headache, no asymmetric weakness, no problem with swallowing. Except as documented, all other systems reviewed and negative. Physical Examination - Physical Exam General: Alert, In no apparent distress, Oriented x3, Obese HEENT: PERRLA, Mucous membr. moist/pink, Sclerae nonicteric Neck: Supple, JVD not distended Respiratory: Clear to auscultation bilaterally, Normal air movement Cardiovascular: Regular rate/rhythm, Normal S1 S2, Edema (1+ bilateral ankle pitting edema) Capillary refill: <2 Seconds Gastrointestinal: Normal bowel sounds, Non-distended, Tenderness (Diffuse tenderness, worse in the upper quadrant.) Musculoskeletal: No erythema Integumentary: No rashes, No erythema Neurological: Normal speech, Normal strength at 5/5 x4 extr - Studies Laboratory Data (last 24 hrs) 10/09/19 23:00: Creatinine 1.37 H 10/09/19 23:00: WBC 9.6, Hgb 14.1, Hct 40.4, Plt Count 173 10/09/19 23:00: Sodium 136, Potassium 3.8, BUN 16, Creatinine 1.33 H, Glucose 167 H, Total Bilirubin 1.1 H, AST 34, ALT 40, Alkaline Phosphatase 42 L, Lipase 67 L Assessment and Plan - Problems (Diagnosis) (1) Acute cholecystitis Current Visit: Yes Status: Acute (2) Congestive heart failure Current Visit: Yes Status: Chronic (3) Hypertension Current Visit: Yes Status: Chronic (4) Chronic anticoagulation Current Visit: Yes Status: Chronic - Plan Admit to the medical floor Start IV antibiotics Consult general surgery-Dr. Ashley Keep him NPO for possible lap cholecystectomy. Hold Xarelto. Bridge with heparin drip if patient is not able to undergo surgery tomorrow. No active cardiac disease. No echocardiogram on file. Obtain an echocardiogram to assess LV function Continue home medications for other stable medical problems. - Advance Directives Does patient have a Living Will: No Does patient have a Durable POA for Healthcare: No
[2019-10-10] MEDS: MORPHINE 2 MG/ML SYR IV PRN ×5 (05:35→22:29)
[2019-10-10] MEDS: NA CHLORIDE 0.9% 1,000 ML IV SCH (05:36)
[2019-10-10] MEDS: ONDANSETRON 4 MG/2 ML VIAL IV PRN ×2 (05:36→11:54)
[2019-10-10] MEDS ORDERED: KCL 20 MEQ/100 mL IVPB 20 MEQ/100 ML BAG IV ONE (08:00)
[2019-10-10] MEDS ORDERED: CEFTRIAXONE 1 GM/NS 50 ML 1 GM/50 ML BAG IV SCH (09:00)
[2019-10-10] MEDS ORDERED: CEFTRIAXONE/SWI 1gm 1 GM/10 ML SYR IVP SCH (09:00)
[2019-10-10 09:15] LABS: Urine Appearance CLEAR; Urine Bilirubin NEGATIVE (NEG); Urine Blood 2+ (NEG); Urine Color YELLOW; Urine Glucose NEGATIVE (NEG); Urine Protein NEGATIVE (NEG); Urine Specific Gravity >=1.030 (1.005-1.030)
[2019-10-10 09:37] LABS: Urine Microscopic Reflex ORDER UMIC
[2019-10-10 10:02] LABS: Urine Bacteria NONE SEEN /HPF (NONE SEEN); Urine RBC 20-50 /HPF (NONE SEEN)
[2019-10-10] MEDS ORDERED: LABETALOL 20 MG/4ML SYRINGE IV ONE ×2 (13:26→13:45)
[2019-10-10] MEDS ORDERED: LABETALOL 20 MG/4ML SYRINGE IV PRN ×2 (13:26→13:46)
[2019-10-10] MEDS ORDERED: FUROSEMIDE 40 MG/4 ML VIAL IV ONE (14:23)
--- NOTE | 2019-10-10 17:14 | PN ---
Date of Progress Note: 10/10/2019 Subjective: Patient is seen and examined. Chart reviewed and case discussed with RN. Code Status: Full. Medications: List reviewed. Physical Examination: Vital Signs: Temperature 97.4, heart rate 92, blood pressure 156/63, respirations 20, O2 of 93% on 2 L. General: Awake, alert, oriented x3, some mild distress due to pain. Elderly male, morbidly obese. BMI 44. CV: S1, S2. Regular rate and rhythm. Peripheral pulses present. Respiratory: Moving air well bilaterally. Gastrointestinal: Abdomen is soft. Mild tenderness to pa lpation in the right upper quadrant. No rebound or guarding. Positive bowel sounds. No distention. Extremities: No clubbing, cyanosis, or edema. Neurologic: Nonfocal. Laboratory Data: Creatinine is 1.37, WBC 9.6. Assessment: 1.Acute cholecystitis. We will continue with IV analgesia, n.p.o. I discussed case with Dr. Per yun. He will evaluate the patient today. Xarelto has been held for possible surgery. 2.Congestive heart failure, unknown ejection fraction, chronic. We will continue to monitor I's and O's, free fluid restriction. 3.Essential hypertension, stable. 4.Morbid obesity. BMI 44. 5.Hypothyroidism, stable. 6.Mixed hyperlipidemia. 7.Status post pacemaker. Plan: Heparin for DVT prophylaxis and bridging to hold Xarelto. Possible surgery depending on clini monse condition. /MODL Voice ID: [id number] Report ID: [id number]
--- NOTE | 2019-10-10 19:16 | RAD REPORT ---
EXAM DESCRIPTION: US - Abdomen Exam Complete - 10/10/2019 6:20 pm CLINICAL HISTORY: cholecytitis COMPARISON: Abdomen Pelvis W Contrast dated 10/10/2019 FINDINGS: Gallbladder size is normal. Multiple variably sized large and small gallstones are present . Wall is slightly thickened. No pericholecystic fluid identified. Common bile duct is normal with no common duct stone identified. The liver and spleen show no suspicious findings. The pancreas is obscured by bowel gas. No hydronephrosis or suspicious mass in either kidney. Aorta and IVC show no significant finding. No ascites or bulky lymphadenopathy. IMPRESSION: Multi stone cholelithiasis with wall thickening. Findings are suspicious for acute kamille cystitis in the correlation with clinical findings. No biliary tree dilatation. Pancreas is too obscured by bowel for assessment.
--- NOTE | 2019-10-10 19:23 | CON ---
Date of Consultation: 10/10/2019 Reason For Service: Abdominal pain. History Of Present Illness: This is the case of a male, who come to us complaining of abdominal pain . Etiology of that is unknown. He point at the right lower quadrant, right upper quadrant. It has been like that for a day. He denies any fever. He states some episode of diarrhea. In the beginnin g, he thought he was having a food poisoning from a salmon that he ate, but remember also eating some sausage. Came to the ER. Initial x-rays did not show much. They probably believe may have an infl anna marie gallbladder. He was admitted. Past Medical History: Hypertension, congestive heart failure, hyperlipidemia, and hypothyroidism, he art disease. Past Surgical History: Pacemaker, appendectomy, open-heart surgery. Social History: He does not smoke. He does not drink alcohol. Review of Systems: Ten point system otherwise unremarkable. Physical Examination: General: Patient is awake and alert. HEENT: Pupils are equal and reactive, anicteric. Neck: Supple. Chest: Clear. Abdomen: Right abdominal tenderness. Patient has a mid abdomen and right upper quadrant too and epi gastric. No Rosenbaum sign at this moment. Extremities: Good capillary refill. Laboratory Data: Blood work shows a mildly elevated bilirubin. WBC count of 9.6. Creatinine is 1.3 3. Lipase 67. CAT scan that has not been read officially yet, although preliminary cannot rule out gallbladder as part of the etiology of this pain. Plan: We are going to obtain right upper quadrant ultrasound since the bilirubin is elevated. We go ing to get GI involved for MRCP. Patient fully explained the benefits, alternatives, and risks of la paroscopic, possible open cholecystectomy, which include but are not limited to infection, bleeding, damage to adjacent structures, anesthesia complication, choledocholithiasis, bile leak, pancreatitis, DC, and even . He also understands this may not relieve any symptoms. He might need more than one surgical intervention. He is on blood thinners at this moment in the form of Xarelto. We are g oing to have to hold those and also obtain a cardiology clearance. HM/MODL Voice ID: [id number] Report ID: [id number]
[2019-10-11] MEDS: NA CHLORIDE 0.9% 1,000 ML IV SCH ×2 (01:00→10:30)
[2019-10-11] MEDS: MORPHINE 2 MG/ML SYR IV PRN ×6 (02:25→23:13)
[2019-10-11 04:19] LABS: Absolute Lymphocytes (CBC) 1.5 K/uL (0.7-4.9); Basophils % 0.3 % (0-1.3); Hematocrit 40.1 % (39.6-49.0); Lymphocytes % 7.5 % (15.3-44.8); RBC Red Blood Cell Count 4.17 M/uL (4.33-5.43)
[2019-10-11 04:21] LABS: Protime INR 1.32
[2019-10-11 04:32] LABS: Albumin 3.1 g/dL (3.4-5.0); Bilirubin Direct 0.5 mg/dL (0-0.2); Bilirubin Total 1.7 mg/dL (0.2-1.0); Phosphorus 2.8 mg/dL (2.5-4.9); Potassium 4.2 mmol/L (3.5-5.1); Protein, Total 7.3 g/dL (6.4-8.2)
[2019-10-11] MEDS: PIPER/TAZO/NS 3.375gm 3.375 GM/100 ML BAG IVPB SCH ×2 (09:14→17:24)
[2019-10-11] MEDS: Levofloxacin500mg IV 500 MG/100 ML BAG IV SCH (12:27)
[2019-10-11] MEDS: FUROSEMIDE 40 MG TABLET PO SCH ×2 (12:27→22:22)
--- NOTE | 2019-10-11 13:36 | CON ---
Identification: A 69-year-old man. Chief Complaint: Abdominal pain. Reason For Consult: Cardiac clearance before cholecystectomy. History Of Present Illness: Mr. Bates has been having abdominal pain, other symptoms of gallblad mikayla trouble for several weeks. He has been found to have acute cholecystitis or gallstones. Evidenc e of inflammation of gallbladder symptoms are all consistent with it. He has a history of heart dise ase with coronary bypass surgery in 1993, chronic atrial fibrillation at least for the last 5 years. He also has a very depressed ejection fraction. Ejection fraction is in the 20s. He has a defibril lator, which is a biventricular pacing defibrillator. According to our EKG, it paces more than 95% o f the time. There are occasional PVCs, but there is biventricular pacing from the most part. There are no [place] QRS complexes. No evidence the pacemaker pacing the atrium at all. It may not have be en atrial lead. He has no drug allergies. He is on the borderline for having diabetes. He has hyper tension, coronary heart disease, congestive heart failure, hypothyroidism, chronic atrial fibrillatio n. Medications: His outpatient medications have been pravastatin, potassium chloride, losartan, levothy roxine, furosemide, and Xarelto. Physical Examination: General: He is 6 feet tall, 340 pounds. Obese, alert, oriented, pleasant, not in distress. Lungs: Clear. Heart: Fairly regular rhythm, occasional premature beats. I do not appreciate a gallop or a signifi cant murmur. Abdomen: Soft. Extremities: Mild edema. Distal pulses palpable. Laboratory Data: Has an elevated white blood cell count. Normal hemoglobin, hematocrit, platelet co unt. His INR is elevated. This would be consistent with somebody taking Xarelto. Xarelto has been stopped. His creatinine is 1.29, blood sugar 142. Electrolytes are okay. Bilirubin is elevated. H e may well have bile duct obstruction. Impression: The patient is an acceptable risk for undergoing cholecystectomy and/or cholangiopancrea tography. He is asymptomatic now. I think we want to be careful to avoid giving him excessive IV fl uids. I would like him to get an echocardiogram before he goes to Surgery even in the postop. I thi nk we should have an echocardiogram and define what his cardiac function really is. Thank you very much for your kind referral of Mr. Bates. I will follow him with you. JONATHAN Voice ID: [id number] Report ID: [id number]
--- NOTE | 2019-10-11 15:41 | CON ---
Date of Consultation: 10/11/2019 Reason For Consultation: Right upper quadrant pain, nausea, cholelithiasis, cholecystitis. History Of Present Illness: Patient is a 69-year-old white male with history of hypertension, hyperl ipidemia, congestive heart failure. Patient presented to the hospital with right upper quadrant pain and generalized abdominal pain. Patient states pain was maximum 10/10, now down to 7/10 in the hosp ital on pain medicines and antiemetics. Has had nausea, but no emesis. No fevers, chills, night swe ats. No melena, hematochezia, hematemesis, coffee-ground emesis, hematuria, dysuria, polydipsia. Past Medical History: Significant for hypertension, prediabetes, hyperlipidemia, congestive heart fa ilure, hypothyroidism, pacemaker, appendectomy, open heart surgery. Home Medications: Lasix, Synthroid, losartan, potassium, pravastatin, Xarelto. Allergies: NKDA. Social History: He is a . of breast cancer 9 years ago. Alcohol, 2 to 3 glasses of wine per week. No tobacco. Family History: Father of coronary artery disease in [place]. Mother of old age. Review of Systems: Patient has right upper quadrant pain and generalized abdominal pain, nausea, but denies any emesis, fevers, chills, night sweats, jaundice, depression, anxiety, muscle aches, joint aches, backaches, ch est pain, shortness of breath, seizure, syncope, lower extremity edema, muscle aches. No melena, hem atochezia, hematemesis, coffee-ground emesis, hematuria, dysuria, polydipsia. Physical Examination: Vital Signs: Patient is 6 feet 1 inches, 340 pounds. BMI of 45 kg/sq m. General: He is an obese male, lying in bed, in no acute distress. HEENT: Normocephalic, atraumatic. Anicteric. Pupils equal, round, and reactive to light. Extraocu lar movements are intact. Oropharynx is clear. Neck: Supple. No masses. Respirations: Clear to auscultation bilaterally. Cardiac: Regular rate and rhythm. Gastrointestinal: Positive bowel sounds. Soft, nondistended. Pain in the right upper quadrant grea ter than the right lower quadrant area. No peritoneal or Rosenbaum sign. Extremities: No clubbing, cyanosis, or edema. 2+ pulses. Neuro: Alert and oriented x3. Grossly nonfocal. 5/5 motor strength. Sensation intact to light maria fernanda ch. Laboratory Data/imaging Studies: Patient has a white count of 19.5, was 9.6 yesterday; hemoglobin of 13.5; hematocrit 40.1; MCV of 96; platelet count of 164; polys 84%; lymphocytes 8%, monocytes 8%. P T of 15.4, INR of 1.3, PTT of 34.3. Sodium 141, potassium 4.2, chloride 108, bicarb 28, BUN of 15, c reatinine of 1.3, glucose 142, calcium 8.6, phosphorus 2.8, magnesium 2.0, total bilirubin 1.7, direc t bilirubin 0.5, AST of 26, ALT of 25, alkaline phosphatase 36, total protein 7.3, albumin 3.1, lipas e 39. 2+ blood, 20 to 50 RBCs, otherwise negative. Patient has an ultrasound of the abdomen, which revealed gallstones in gallbladder with gallbladder w all thickening. Findings suspicious for acute cholecystitis. No biliary tree dilatation was noted. CT scan was performed, verbal report just revealed just cholelithiasis with biliary sludge with poss ible acute cholecystitis. Right upper quadrant ultrasound recommended. There is mild colonic divert iculosis, but no diverticulitis. No biliary tree dilatation noted. Impression: 1.Cholelithiasis with cholecystitis, right upper quadrant. Patient came to hospital with nausea, ri ght upper quadrant pain, and generalized abdominal pain 10/10, now down to 7/10, but no emesis, fever s, chills. CT scan and ultrasound revealed multiple gallstones in gallbladder with gallbladder wall thickening consistent with acute cholecystitis. There is no biliary tree dilatation noted. 2.History of hypertension, prediabetes, hyperlipidemia, congestive heart failure, coronary artery di sease, coronary artery bypass graft, pacemaker, hypothyroidism, and obesity. Recommendations: 1.No need for ERCP. Proceed with laparoscopic cholecystectomy as per Surgery. 2.IV fluids and IV antibiotics. 3.P.r.n. pain medicines, antiemetics, and keep patient n.p.o.. AN/XIMENAL Voice ID: [id number] Report ID: [id number]
--- NOTE | 2019-10-11 16:27 | PN ---
Date of Progress Note: 10/11/2019 Subjective: Patient is seen and examined. Chart reviewed and case discussed with RN and Dr. Shane. Patient still having some abdominal pain. Medications: List reviewed. Physical Examination: Vital Signs: Temperature 97, heart rate 105, blood pressure 139/63, respirations 20, O2 of 95% on 4 L via nasal cannula. General: Awake, alert, oriented x3, in some mild distress. Elderly male, morbidly obese. CV: S1, S2. Sinus tachycardia. Peripheral pulses present. Respiratory: Diminished breath sounds. Patient is mildly tachypneic. No use of accessory muscles. Gastrointestinal: Abdomen is soft. Tenderness to palpation in the right upper quadrant. No guardin g or rigidity. Extremities: No clubbing or cyanosis. Patient has trace pedal edema. Neurologic: Nonfocal. Laboratory Data: Sodium 141, potassium 4.2, chloride 108, CO2 of 28, BUN 15, creatinine 1.29, glucos e 142, lactate 1.4, calcium 8.6, phosphorus 2.8, magnesium 2, total bilirubin 1.7, direct bilirubin 0 .5, AST 26, ALT 25, alkaline phosphatase 36, albumin 3.1, lipase 39. WBC 19.5, H and H of 13.5 and 4 0.1, platelets 164, neutrophils 84%. Assessment: 69-year-old male with: 1.Acute cholecystitis. Continue with IV analgesia. Patient will need cardiac clearance. Xarelto h as been held, has been bridged with Lovenox. 2.Congestive heart failure, chronic, unknown ejection fraction. Appreciate Cardiology input. We wi ll obtain echocardiogram. Continue with fluid restriction. Check chest x-ray. Continue with Lasix. 3.Essential hypertension. 4.Cardiac arrhythmia. EKG was ordered yesterday, not obtained. We will continue on cardiac telemet ry. Appreciate Cardiology input. 5.Hypothyroidism. Continue levothyroxine. 6.Hyperlipidemia. Continue statin. 7.Status post pacemaker. 8.Morbid obesity, BMI of 44. 9.Deep venous thrombosis prophylaxis, currently on Lovenox. Plan: We will adjust IV antibiotics. Patient's white count jumped up to 19,000. We will switch to Zosyn and DC Rocephin. Patient still has hyperbilirubinemia. We will need MRCP to rule out ductal s tone. Ultrasound did not show any ductal dilatation. GI, Dr. Shane has been consulted. Anticipate surgery in a.m. /RAD Voice ID: [id number] Report ID: [id number]
--- NOTE | 2019-10-11 19:56 | PN ---
Date of Progress Note: 10/11/2019 Diagnoses: Abdominal pain, symptomatic cholelithiasis, cholecystitis, cardiac disease. Subjective: Patient is awake, alert. No distress. Feeling better, but we have not feed him yet. Objective: Chest: Clear. Abdomen: Soft and depressible. Right upper quadrant tenderness. Extremities: Good capillary refill. Laboratory Data: Sonogram shows multi-stone cholelithiasis with cholecystitis. LFTs shows increased bilirubin to 1.7. Plan: We still waiting for the MRCP. We also still waiting for the cardiac clearance. I understand MRCP is not available at this moment and the echo will be done tomorrow to give final clearance. In the meantime, we are going to keep patient n.p.o., IV antibiotics. He was fully explained once patrick manuel the benefits, alternatives, and risks of laparoscopic, possible open cholecystectomy. When we have that clearance, we will proceed accordingly. CALE/RAD Voice ID: [id number] Report ID: [id number]
--- NOTE | 2019-10-11 20:34 | RAD REPORT ---
EXAM DESCRIPTION: RAD - Chest Pa And Lat (2 Views) - 10/11/2019 8:25 pm CLINICAL HISTORY: CHF Chest pain. COMPARISON: Chest Single View dated 02/23/2017 FINDINGS: The lungs are hyperexpanded with increased density is seen in the posterior aspect of the mid lung which could represent an area infiltrate/pneumonia. This is best detected on the lateral pro jection. The heart is moderately enlarged with a multilead pacer/defibrillator device. Sternotomy wir es are present.
[2019-10-11] MEDS: ATORVASTATIN 10 MG TAB PO SCH (22:23)
[2019-10-12] MEDS: PIPER/TAZO/NS 3.375gm 3.375 GM/100 ML BAG IVPB SCH ×3 (01:00→16:08)
[2019-10-12] MEDS: LEVOTHYROXINE SOD 0.05 MG TABLET PO SCH (06:21)
[2019-10-12] MEDS: NA CHLORIDE 0.9% 1,000 ML IV SCH ×2 (06:21→16:09)
[2019-10-12] MEDS: MORPHINE 2 MG/ML SYR IV PRN (06:23)
[2019-10-12] MEDS: POTASSIUM CL SA 10 MEQ TAB PO SCH (07:59)
[2019-10-12] MEDS: LOSARTAN POTASSIUM 50 MG TABLET PO SCH (07:59)
[2019-10-12] MEDS: FUROSEMIDE 40 MG TABLET PO SCH ×2 (08:00→22:00)
[2019-10-12 08:45] LABS: Basophils % 0.3 % (0-1.3); Hematocrit 35.9 % (39.6-49.0); Lymphocytes % 7.5 % (15.3-44.8); MPV 7.9 fL (7.6-11.3); RBC Red Blood Cell Count 3.76 M/uL (4.33-5.43)
[2019-10-12] MEDS ORDERED: HOME MED 1 EA UNK (Pravastatin Sodium [Pravastatin Sodium] 40 MG) PO SCH (09:00)
[2019-10-12] MEDS ORDERED: HOME MED 1 EA UNK (Losartan Potassium [Losartan Potassium] 100 MG) PO SCH (09:00)
[2019-10-12] MEDS ORDERED: HOME MED 1 EA UNK (Potassium Chloride [Potassium Chloride] 20 MEQ) PO SCH (09:00)
--- NOTE | 2019-10-12 10:26 | EKG ---
Test Date: 2019-10-11 Test Time: 09:14:31 Bunk Assembler: RENETTA Cole MEASUREMENT RESULTS: Intervals: Rate: 114 [place]: QRSD: 194 QT: 420 QTc: 578 [place]: P: [place]: QRS: 186 T: 0 INTERPRETIVE STATEMENTS: Electronic ventricular pacemaker Compared to ECG 10/10/2019 14:44:34 No significant changes Electronically Signed On 10-12-19 10:26:27 CAREER DEVELOPMENT ENGINEER by Al Parsons
--- NOTE | 2019-10-12 10:27 | EKG ---
Test Date: 2019-10-10 Test Time: 14:44:34 Hospital Account Liaison: RICHARD MEASUREMENT RESULTS: Intervals: Rate: 116 [place]: 46 QRSD: 154 QT: 376 QTc: 522 [place]: P: 82 [place]: 46 QRS: 260 T: 84 INTERPRETIVE STATEMENTS: Electronic ventricular pacemaker Compared to ECG 02/23/2017 01:24:42 No significant changes Electronically Signed On 10-12-19 10:26:56 SEISMOGRAPH RECORDER by Al Parsons
[2019-10-12] MEDS ORDERED: LIDOCAINE 2% MPF 5 ML VIAL ONE (10:30)
[2019-10-12] MEDS ORDERED: MIDAZOLAM HCL 2 MG/2 ML INJ ONE (10:30)
[2019-10-12] MEDS ORDERED: FENTANYL CITR 100 MCG/2 ML ONE ×2 (10:30→12:35)
[2019-10-12] MEDS ORDERED: ROCURONIUM 50 MG/5 ML VIAL IV ONE (10:30)
[2019-10-12] MEDS ORDERED: propofoL 200 MG/20 ML VIAL IV ONE (10:30)
[2019-10-12] MEDS ORDERED: ETOMIDATE 20 MG/10 ML VIAL IV ONE (10:31)
--- NOTE | 2019-10-12 11:34 | ECHO ---
HEIGHT: 6 ft 1 in WEIGHT: 340 lb 0 oz DATE OF STUDY: 10/12/[address]: Al Parsons MD 2-DIMENSIONAL: YES M.MODE: YES DOPPLER: YES COLOR FLOW: YES TDS: YES PORTABLE: NO DEFINITY: NO BUBBLE STUDY: NO DIAGNOSIS: CONGESTIVE HEART FAILURE CARDIAC HISTORY: CATHERIZATION: SURGERY: PROSTHETIC VALVE: PACEMAKER: MEASUREMENTS (cm) DIASTOLIC (NORMALS) SYSTOLIC (NORMALS) IVSd 1.7 (0.6-1.2) LA Diam 5.1 (1.9-4.0) LVEF 40-45% LVIDd 5.4 (3.5-5.7) LVIDs 3.5 (2.0-3.5) %FS 37% LVPWd 1.6 (0.6-1.2) Ao Diam 3.9 (2.0-3.7) 2 DIMENSIONAL ASSESSMENT: RIGHT ATRIUM: DILATED LEFT ATRIUM: DILATED RIGHT VENTRICLE: PACEMAKER CATHETER LEFT VENTRICLE: LEFT VENTRICULAR HYPERTROPHY TRICUSPID VALVE: NORMAL MITRAL VALVE: NORMAL PULMONIC VALVE: NORMAL AORTIC VALVE: MILD SCLEROSIS PERICARDIAL EFFUSION: NONE AORTIC ROOT: NORMAL LEFT VENTRICULAR WALL MOTION: AKINESIS OF INFERIOR, POSTERIOR SMITH. DOPPLER/COLOR FLOW: MILD AORTIC REGURGITATION. NO AORTIC STENOSIS. COMMENTS: MILDLY DEPRESSED LEFT VENTRICULAR EJECTION FRACTION WITH WALL MOTION ABNORMALITY. DILATED LEFT AND RIGHT ATRIUM. PACEMAKER CATHETER. AORTIC SCLEROSIS WITH NO AORTIC STENOSIS. MILD AORTIC REGURGITATION. TECHNOLOGIST: Kofi COFFEY
[2019-10-12] MEDS ORDERED: Phenylephrine HCl 10 MG/ML 1 ML VIAL ONE (11:37)
[2019-10-12] MEDS ORDERED: NS 0.9% VIAL 10 ML ONE ×3 (11:37→12:50)
[2019-10-12] MEDS ORDERED: ESMOLOL HCL 10 ML IV ONE (11:37)
--- NOTE | 2019-10-12 12:07 | RAD REPORT ---
EXAM DESCRIPTION: CT - Abdomen Pelvis W Contrast - 10/10/2019 6:02 am CLINICAL HISTORY: The patient is 69 years old and is Male; ABD PAIN TECHNIQUE: Axial computed tomography images of the abdomen and pelvis with intravenous contrast. S agittal and coronal reformatted images were created and reviewed. This CT exam was performed using one or more of the following dose reduction techniques: automated exposure control, adjustment of t he mA and/or kV according to patient size, and/or use of iterative reconstruction technique. DLP: 3075 mGy*cm COMPARISON: None. FINDINGS: LUNG BASES: Bibasilar atelectasis versus scarring. No focal consolidation. HEART: Cardiomegaly. No pericardial effusion. ABDOMEN: LIVER: Hepatic steatosis. GALLBLADDER AND BILE DUCTS: Distention of the gallbladder with mild pericholecystic fluid. Gallsto ne in the region of the gallbladder neck. No ductal dilation. PANCREAS: Fatty infiltration of the pancreas. No ductal dilation. SPLEEN: Unremarkable. No splenomegaly. ADRENALS: Unremarkable. No mass. KIDNEYS AND URETERS: Mild bilateral renal atrophy. No hydronephrosis. STOMACH AND BOWEL: Mild colonic diverticulosis. No acute diverticulitis. No obstruction. PELVIS: APPENDIX: The appendix is seen and is within normal limits. BLADDER: Unremarkable. No mass. REPRODUCTIVE: Unremarkable as visualized. ABDOMEN and PELVIS: INTRAPERITONEAL SPACE: Unremarkable. No free air. No significant fluid collection. BONES/JOINTS: Multilevel degenerative disease. No acute fracture. No dislocation. SOFT TISSUES: Bilateral fat-containing inguinal hernias. VASCULATURE: Vascular calcifications. No abdominal aortic aneurysm. LYMPH NODES: Unremarkable. No enlarged lymph nodes. IMPRESSION: 1. Cholelithiasis and biliary sludge with possible acute cholecystitis. Right upper qu adrant ultrasound is recommended. 2. Mild colonic diverticulosis. No acute diverticulitis. Electronically signed by: Jagdish Soler DO 10/10/2019 2:56 AM SPECTRAL SCIENTIST Due to temporary technical issues with the PACS/Fluency reporting system, reports are being signed by the in house radiologist as a courtesy to ensure prompt reporting. The interpreting radiologist is f ully responsible for the content of the report.
[2019-10-12] MEDS ORDERED: LABETALOL 20 MG/4ML SYRINGE IV ONE (12:43)
[2019-10-12] MEDS ORDERED: ONDANSETRON 4 MG/2 ML VIAL ONE (12:46)
[2019-10-12] MEDS ORDERED: NEOSTIGMINE 1 MG/ML -5 ML ONE (12:46)
[2019-10-12] MEDS ORDERED: GLYCOPYRROLATE 0.2 MG/ML SYR ONE (12:46)
--- NOTE | 2019-10-12 12:49 | P.BOP ---
Preoperative diagnosis: acute cholecystitis, symptomatic cholelithiasis, cadiac disease, morbid obe Postoperative diagnosis: same Primary procedure: Laparoscopic cholecystectomy Cro: RHODA DAILEY (RIVER TESTER) Estimated blood loss: <30cc Specimen: gb Findings: as above Anesthesia: General Complications: None Drain(s): HUI drain Transferred to: Recovery Room Condition: Good
[2019-10-12] MEDS ORDERED: PROMETHAZINE INJ 25 MG/ML AMP ONE (13:17)
[2019-10-12] MEDS: HYDROMORPHONE HCL 1 MG/ML INJ ONE ×2 (13:17→13:26)
[2019-10-12] MEDS ORDERED: HYDROMORPHONE HCL 1 MG/ML INJ ONE (13:41)
[2019-10-12] MEDS: Levofloxacin500mg IV 500 MG/100 ML BAG IV SCH (13:54)
[2019-10-12] MEDS: MORPHINE 4 MG/ML SYR IV PRN ×2 (16:08→22:06)
--- NOTE | 2019-10-12 16:43 | PN ---
Date of Progress Note: 10/12/2019 Subjective: Patient is seen and examined. Chart reviewed and case discussed with RN. Patient still having some pain in the right upper quadrant of his abdomen. Minimal nausea. No acute events overn ight. Medications: List reviewed. Physical Examination: Vital Signs: Temperature 97, heart rate 111, blood pressure 122/70, respirations 20, O2 95% on 3 L v ia nasal cannula. General: Awake, alert, oriented x3, in some mild distress. Morbidly obese male. Ill-appearing. CV: S1, S2. Regular rate and rhythm. Peripheral pulses present. Respiratory: Diminished breath sounds. No wheezing or stridor. Gastrointestinal: Abdomen is soft. Tenderness to palpation in the right upper quadrant. Positive b owel sounds. No distention. No guarding or rigidity. Extremities: No clubbing, cyanosis, or edema. Neurologic: Nonfocal. Laboratory Data: WBC 13.3, H and H 12.1 and 35.9, platelets 138, neutrophils 83%. Echocardiogram shows EF of 40% to 45% with wall motion abnormality, dilated atria, aortic sclerosis w ith no stenosis. Chest x-ray from 10/11/2019 shows hyperexpanded lungs with increased density seen in the posterior as pect of mid lung, which could represent an area of infiltrate pneumonia, best detected on the lateral projection. Heart moderately enlarged with multi lead pacer defibrillator device. Sternotomy wires are present. Assessment: 69-year-old male with: 1.Acute cholecystitis with cholelithiasis. We will continue with IV antibiotics. Patient's Xarelto has been held, was bridge with Lovenox. Echocardiogram was done today, shows low EF with wall motio n abnormality. We will need to discuss with Cardiology prior to surgery. Appreciate Dr. Dion Shane's input. Dr. Shane does not recommend ERCP at this time. Patient unable to have MRCP due to his pacemaker. 2.Congestive heart failure systolic dysfunction, acute on chronic. We will continue with fluid rest riction, monitor I's and O's. Continue with home dose of Lasix. Chest x-ray shows infiltrate in the mid lung, possible pneumonia. 3.Essential hypertension, stable. 4.Status post pacemaker. 5.Coronary artery disease. [place] artery and [place] heart, status post coronary artery bypass graft . 6.Hypothyroidism. Continue levothyroxine. 7.Hyperlipidemia. Continue statin. 8.Status post pacemaker. 9.Morbid obesity. BMI 44. 10.Possible pneumonia. Patient is on IV antibiotics. No symptoms of cough or fever. Doubt pneumon ia likely fluid. Patient being covered with antibiotics for the cholecystitis. We will continue to monitor. We will obtain sputum cultures. Plan: Anticipate surgery if cleared by Cardiology. /RAD Voice ID: [id number] Report ID: [id number]
[2019-10-12] MEDS ORDERED: METOPROLOL TARTRATE 5 MG/5 ML INJ IV STA (19:45)
[2019-10-12] MEDS: ATORVASTATIN 10 MG TAB PO SCH (22:00)
[2019-10-13] MEDS ORDERED: METOPROLOL TARTRATE 5 MG/5 ML INJ IV STA (00:07)
--- NOTE | 2019-10-13 00:10 | OP ---
Date of Procedure: 10/12/2019 Surgeon: Cheo Ashley MD Orthopedic Podiatrist: MITCH Barrow. Preoperative Diagnoses: Morbid obesity, cardiac disease, acute cholecystitis, symptomatic cholelithi asis. Postoperative Diagnoses: Morbid obesity, cardiac disease, acute cholecystitis, symptomatic cholelith iasis. Procedure: Laparoscopic cholecystectomy. Specimen: Gallbladder. Finding: Acute cholecystitis with inflamed gallbladder and distention. Drains: HUI #10. Anesthesia: General plus local. Indications: This is the case of a male who comes to us with above diagnosis. We finally obtained a cardiac clearance with restrictions of fluid recommended. Once we had that one, we once again expla ined to him the benefits, alternatives, and risks of laparoscopic, possible open cholecystectomy, whi ch include but are not limited to infection, bleeding, damage to adjacent structures, anesthesia comp lication, choledocholithiasis, bile leak, pancreatitis, NE, and even . He also understands this may not relieve any symptoms. He might need more than one surgical intervention. He understood and signed a consent. Description Of Procedure: The patient was brought to the operating room, placed in supine position. Anesthesia was done without complication. Abdominal area was prepped and draped in sterile fashion. Marcaine 0.5% was injected for local anesthetic, followed by sharp incision of the skin in the infr aumbilical region. Incision was carried down to fascia, which was opened under direct vision. Perit oneum was encountered, opened under direct vision. Vicryl #1 placed inside the fascia. Chata troca r was carefully introduced. No bleeding was obtained. I placed 3 more trocars in the right upper qu adrant, 5 mm each one of them under direct visualization. This allowed me to see a very distended an d inflamed gallbladder. So, we decompressed the area with an Endo needle under direct visualization. Needle was removed. Grasper was placed in the fundus of the gallbladder. Carefully, the omentum w as removed away from the gallbladder. This allowed me to put a grasper in the infundibulum, retracte d the gallbladder in the inferolateral fashion exposing the triangle of [place], obtaining critical vie w of safety. Cystic duct and cystic artery were clearly isolated free circumferentially and a connec tion between those and the gallbladder were clearly identified. I proceeded to ligate those by using at least 3 clips proximal, 1 clip distal, ligation in middle. Same was done with the cystic artery. No bile leak. No bleeding. The gallbladder was removed from liver using Bovie cauterizer and zena tucker from abdominal cavity using EndoCatch through the umbilical incision. We had to extend the incis ion in the infraumbilical area since the gallbladder was so large, it could not come to the initial i ncision. We put the cameras back in to take a look at the area of the gallbladder fossa. It was an infected area. We controlled the area, still we will have a HUI drain over the area exiting through o ne of the trocar sites. The cystic duct was too small to even due for an intraoperative cholangiogra m at this moment, so we going to follow the LFTs in the future and if they are larger then we may hav e to do an ERCP. At that moment, I proceeded to remove the trocars under direct vision. Deflated th e pneumoperitoneum. Closed the fascia with #1 Vicryl, irrigated, subcutaneous tissue with 3-0 chromi c, and then the skin with evi. The HUI drain was left in place and secured in place with 3-0 nylo n. Patient tolerated the procedure well. Patient was sent to Recovery in stable condition. CALE/RAD Voice ID: [id number] Report ID: [id number]
[2019-10-13] MEDS: PIPER/TAZO/NS 3.375gm 3.375 GM/100 ML BAG IVPB SCH ×3 (00:24→16:25)
[2019-10-13] MEDS: MORPHINE 4 MG/ML SYR IV PRN (02:56)
[2019-10-13] MEDS: LEVOTHYROXINE SOD 0.05 MG TABLET PO SCH (06:18)
[2019-10-13 06:32] LABS: Absolute Lymphocytes (CBC) 1.4 K/uL (0.7-4.9); Basophils % 0.4 % (0-1.3); Hematocrit 35.4 % (39.6-49.0); Lymphocytes % 10.9 % (15.3-44.8); MPV 8.4 fL (7.6-11.3); RBC Red Blood Cell Count 3.71 M/uL (4.33-5.43)
[2019-10-13 06:36] LABS: Potassium 3.7 mmol/L (3.5-5.1)
[2019-10-13] MEDS: FUROSEMIDE 40 MG TABLET PO SCH (07:50)
[2019-10-13] MEDS: HYDROCODONE/APAP 7.5/325 MG TAB PO PRN ×2 (07:50→22:06)
[2019-10-13] MEDS: POTASSIUM CL SA 10 MEQ TAB PO SCH (07:51)
[2019-10-13] MEDS: LOSARTAN POTASSIUM 50 MG TABLET PO SCH (07:51)
[2019-10-13] MEDS: NA CHLORIDE 0.9% 1,000 ML IV SCH (12:10)
[2019-10-13] MEDS: Levofloxacin500mg IV 500 MG/100 ML BAG IV SCH (12:11)
--- NOTE | 2019-10-13 13:37 | P.PN ---
Subjective Date of Service: 10/13/19 Chief Complaint: Abdominal pain Mild abd pain. + flatus. No BM. Mild productive cough. No IS noted at reach. Physical Examination - Vital Signs Temperature: 96.9 F Blood Pressure: 104/65 Pulse: 107 Respirations: 20 Pulse Ox (%): 97 - Physical Exam General: Alert, In no apparent distress HEENT: Atraumatic, PERRLA, EOMI Neck: Supple, JVD not distended Respiratory: Clear to auscultation bilaterally, Normal air movement Cardiovascular: Regular rate/rhythm, Normal S1 S2 Gastrointestinal: Normal bowel sounds, Tenderness Musculoskeletal: No tenderness Integumentary: No rashes Neurological: Normal speech, Normal tone, Normal affect Lymphatics: No axilla or inguinal lymphadenopathy - Studies Reviewed Assessment And Plan - Plan #Acute cholecystitis with cholelithiasis- s/p lap kamille. Post op care. IS and OOB as tolerated. - continue with IV antibiotics. - Prior to surgery, Patient's Xarelto has been held, was bridge with Lovenox. - Appreciate Dr. Ashley and Dr. Shane's input. Dr. Shane does not recommend ERCP at this time. -Patient unable to have MRCP due to his pacemaker. #Congestive heart failure systolic dysfunction. We will continue with fluid restriction, monitor I's and O's. Continue with home dose of Lasix. Chest x- ray shows infiltrate in the mid lung, possible pneumonia. - Echocardiogram shows low EF with wall motion abnormality #Essential hypertension, stable. #Status post pacemaker. #Coronary artery disease. [place] artery and [place] heart, status post coronary artery bypass graft. #Hypothyroidism. Continue levothyroxine. #Hyperlipidemia. Continue statin. #Status post pacemaker. #Morbid obesity. BMI 44. #Possible pneumonia. Patient is on IV antibiotics, add vanc - obtain sputum cultures. Dispo- pending clinical improvement.
--- NOTE | 2019-10-13 18:10 | RAD REPORT ---
EXAM DESCRIPTION: CT - Chest Angio - 10/13/2019 5:48 pm CLINICAL HISTORY: Chest pain. R/O PE COMPARISON: No comparisons TECHNIQUE: CT angiogram of the pulmonary arteries was performed with MIP. All CT scans are performed using dose optimization technique as appropriate and may include automated exposure control or mA/KV adjustment according to patient size. FINDINGS: No evidence of pulmonary thromboembolism. No acute aortic finding demonstrated. Mild cardiomegaly with pacemaker wires present. Bibasilar lung opacities are present likely representing atelectasis. Mild early infiltrate cannot be excluded in the medial right lung base. Trace right pleural effusion. No concerning bony finding. IMPRESSION: No evidence of pulmonary thromboembolism. Subsegmental atelectasis in both lung bases posteriorly with trace right pleural effusion.
--- NOTE | 2019-10-13 18:13 | RAD REPORT ---
EXAM DESCRIPTION: CTAbdomen Pelvis W Contrast - 10/13/2019 5:49 pm CLINICAL HISTORY: Abdominal pain. S/p Lap Abigail COMPARISON: Abdomen Pelvis W Contrast dated 10/10/2019; Abdomen Pelvis W Contrast dated 03/21/2017 ; Abdomen Pelvis W Contrast dated 02/23/2017; CT ABD PELVIS W CONTRAST dated 07/05/2013 TECHNIQUE: Biphasic CT imaging of the abdomen and pelvis was performed with 100 ml non-ionic IV cont rast. All CT scans are performed using dose optimization technique as appropriate and may include automated exposure control or mA/KV adjustment according to patient size. FINDINGS: Bibasilar subsegmental atelectasis is noted small right pleural effusion. Postsurgical changes of recent cholecystectomy noted with drainage catheter in place. Mild inflammato ry changes are seen in the gallbladder fossa without significant fluid collection. Mild free fluid is seen along the right hepatic edge and along the superior margin of the right lobe liver. No aggressi ve liver lesion or biliary dilatation. The spleen, adrenal glands, pancreas and kidneys are within no rmal limits. No bowel obstruction, free air, free fluid or abscess. Significant fecal retention is present in the right colon. The appendix is not identified as a discrete structure, however, no secondary findings o f appendicitis are identified. No evidence of significant lymphadenopathy. No suspicious bony findings. Bilateral fat containing inguinal hernias, larger on the left. IMPRESSION: Changes of recent cholecystectomy with drainage catheter in place. No localized fluid co llection or abscess. Mild perihepatic fluid is present.
[2019-10-13] MEDS ORDERED: NA CHLORIDE 0.9% 500 ML IV ONE (18:29)
[2019-10-13 19:32] LABS: Absolute Lymphocytes (CBC) 0.9 K/uL (0.7-4.9); Basophils % 0.2 % (0-1.3); Hematocrit 36.5 % (39.6-49.0); Lymphocytes % 10.3 % (15.3-44.8); RBC Red Blood Cell Count 3.75 M/uL (4.33-5.43)
--- NOTE | 2019-10-13 20:41 | PN ---
Date of Progress Note: 10/13/2019 Mr. Bates is 69. He is normally a patient of Dr. Joyce. He had an echocardiogram yesterday sh owing an ejection fraction of 40% to 45%, with inferoposterior akinesis and aortic sclerosis. He und erwent surgery today by Dr. Ashley. He had a cholecystectomy. He has had a history of CHF, atrial fibrillation. He has had a CABG in 1993, had an AICD and a history of hypertension. His AICD check ed out okay. He is doing very well postoperatively without any congestive heart failure or arrhythmi a. I suggest that we restart his Xarelto as soon as possible. No change in his medical therapy. We will sign off this case for now. GENE/RAD Voice ID: [id number] Report ID: [id number]
[2019-10-13] MEDS: VANCOMYCIN 2 GM in NA CHLORIDE 0.9% 500 ML IVPB SCH (20:45)
[2019-10-13] MEDS: ATORVASTATIN 10 MG TAB PO SCH (20:45)
--- NOTE | 2019-10-13 21:02 | PN ---
Date of Progress Note: 10/13/2019 Subjective: Status post cholecystectomy, morbid obesity, gastric bypass, acute cholecystitis, sympto matic cholelithiasis. Patient is doing well. There is a question this morning about work up was done by the primary doctor. Result was still pending, but is tolerating diet. He is passing flatus. He is out of bed and ambulating. No chest pain. No shortness of breath. Objective: Abdomen: He has clear abdomen. Intact surgical site. HUI drain serosanguineous, clear, no bile. No bleeding. Extremities: Good capillary refill. Plan: We will continue incentive spirometry, ambulation. Continue diet. Once he tolerates diet, th en he will be able to go home if no medical changes happen. HM/MODL Voice ID: [id number] Report ID: [id number]
[2019-10-14] MEDS: PIPER/TAZO/NS 3.375gm 3.375 GM/100 ML BAG IVPB SCH ×3 (01:19→17:00)
[2019-10-14 04:21] LABS: Absolute Lymphocytes (CBC) 1.2 K/uL (0.7-4.9); Basophils % 0.3 % (0-1.3); Lymphocytes % 14.2 % (15.3-44.8); MPV 8.2 fL (7.6-11.3); RBC Red Blood Cell Count 3.59 M/uL (4.33-5.43)
[2019-10-14 04:37] LABS: Albumin 2.2 g/dL (3.4-5.0); Bilirubin Direct 0.6 mg/dL (0-0.2); Magnesium 2.2 mg/dL (1.8-2.4); Potassium 3.5 mmol/L (3.5-5.1); Protein, Total 6.3 g/dL (6.4-8.2)
[2019-10-14] MEDS: NA CHLORIDE 0.9% 1,000 ML IV SCH (04:58)
[2019-10-14] MEDS: HYDROCODONE/APAP 7.5/325 MG TAB PO PRN (04:59)
[2019-10-14] MEDS: LEVOTHYROXINE SOD 0.05 MG TABLET PO SCH (04:59)
[2019-10-14 05:17] LABS: Blood Morphology Comment NOT SEEN (NOT SEEN); Platelet Estimate ADEQ
[2019-10-14] MEDS ORDERED: POTASSIUM CL SA 10 MEQ TAB PO ONE (08:00)
[2019-10-14] MEDS: POTASSIUM CL SA 10 MEQ TAB PO SCH (09:00)
--- NOTE | 2019-10-14 12:31 | P.PN ---
Subjective Date of Service: 10/14/19 Chief Complaint: Abdominal pain Continues to have a mild productive cough. Abdominal pain is improved. Physical Examination - Vital Signs Temperature: 96.9 F Blood Pressure: 117/55 Pulse: 99 Respirations: 20 Pulse Ox (%): 99 - Physical Exam General: Alert, In no apparent distress, Obese HEENT: Atraumatic, PERRLA, EOMI Neck: Supple, JVD not distended Respiratory: Clear to auscultation bilaterally, Normal air movement Cardiovascular: Regular rate/rhythm, Normal S1 S2 Gastrointestinal: Normal bowel sounds, Tenderness (mild) Musculoskeletal: No tenderness Integumentary: No rashes Neurological: Normal speech, Normal tone, Normal affect Lymphatics: No axilla or inguinal lymphadenopathy - Studies Medications List Reviewed: Yes Assessment And Plan - Plan #Acute cholecystitis with cholelithiasis- s/p lap kamille. Post op care. IS and OOB as tolerated. - continue with IV antibiotics. - Prior to surgery, Patient's Xarelto has been held, was bridge with Lovenox. -Resume xarelto - Appreciate Dr. Ashley and Dr. Shane's input. Dr. Shane does not recommend ERCP at this time. -Patient unable to have MRCP due to his pacemaker. # Lactic acidosis- trend 2.1->8.0-> 1.9 -related to pneumonia vs lab error? -continue IV abx. -sputum culture pending #Congestive heart failure systolic dysfunction. We will continue with fluid restriction, monitor I's and O's. -hold lasix -Chest x-ray shows infiltrate in the mid lung, possible pneumonia. on IV abx -Echocardiogram shows low EF with wall motion abnormality #Essential hypertension, stable. #Status post pacemaker. #Coronary artery disease. [place] artery and [place] heart, status post coronary artery bypass graft. #Hypothyroidism. Continue levothyroxine. #Hyperlipidemia. Continue statin. #Status post pacemaker. #Morbid obesity. BMI 44. PT/OT Dispo- home in a.m.
--- NOTE | 2019-10-14 13:27 | P.PN ---
Subjective Date of Service: 10/15/19 Chief Complaint: RUQ/WILLIAM abdominal pain, cholecystitis Subjective: Improving (S/p lap kamille and feeling better. Sitting in chair.) Review of Systems 10-point ROS is otherwise unremarkable Gastrointestinal: Abdominal Pain (Improved.) Physical Examination - Vital Signs Temperature: 96.9 F Blood Pressure: 117/55 Pulse: 99 Respirations: 20 Pulse Ox (%): 99 - Physical Exam General: Alert, In no apparent distress, Oriented x3, Cooperative HEENT: Atraumatic, Normocephalic, PERRLA, EOMI Neck: Supple Respiratory: Normal air movement Cardiovascular: Normal pulses, Regular rate/rhythm Gastrointestinal: Soft and benign, No rebound, Tenderness Neurological: Normal speech, Normal strength at 5/5 x4 extr - Studies Medications List Reviewed: Yes Assessment And Plan - Current Problems (Diagnosis) (1) Cholelithiasis Current Visit: Yes Status: Acute Comment: Improved. (2) Epigastric abdominal pain Current Visit: Yes Status: Acute Comment: Improved. (3) RUQ abdominal pain Current Visit: Yes Status: Acute Comment: Improved. (4) Obesities, morbid Current Visit: Yes Status: Acute (5) Acute cholecystitis Current Visit: Yes Status: Acute (6) Congestive heart failure Current Visit: Yes Status: Chronic (7) Hypertension Current Visit: Yes Status: Chronic - Plan REC: 1) diet as per surgery 2) GI clinic f/u
[2019-10-14] MEDS: MORPHINE 2 MG/ML SYR IV PRN ×2 (14:52→20:10)
[2019-10-14] MEDS: VANCOMYCIN 2 GM in NA CHLORIDE 0.9% 500 ML IVPB SCH (14:53)
[2019-10-14] MEDS ORDERED: RIVAROXABAN 20 MG TABLET PO SCH (17:00)
[2019-10-14] MEDS: METOPROLOL TAR 25 MG TAB PO SCH (17:49)
[2019-10-14] MEDS: ATORVASTATIN 10 MG TAB PO SCH (20:02)
[2019-10-15] MEDS: PIPER/TAZO/NS 3.375gm 3.375 GM/100 ML BAG IVPB SCH ×3 (00:52→09:00)
[2019-10-15] MEDS: NA CHLORIDE 0.9% 1,000 ML IV SCH (05:00)
[2019-10-15] MEDS: METOPROLOL TAR 25 MG TAB PO SCH (06:03)
[2019-10-15] MEDS: LEVOTHYROXINE SOD 0.05 MG TABLET PO SCH (06:03)
[2019-10-15 06:15] LABS: Magnesium 2.4 mg/dL (1.8-2.4); Potassium 3.8 mmol/L (3.5-5.1)
[2019-10-15 06:23] LABS: Absolute Lymphocytes (CBC) 1.1 K/uL (0.7-4.9); Basophils % 0.3 % (0-1.3); Hematocrit 32.4 % (39.6-49.0); Lymphocytes % 14.7 % (15.3-44.8); MPV 8.2 fL (7.6-11.3); RBC Red Blood Cell Count 3.45 M/uL (4.33-5.43)
[2019-10-15 06:40] VITALS: BMI 47.5
[2019-10-15] MEDS ORDERED: POTASSIUM CL SA 10 MEQ TAB PO ONE (09:00)
[2019-10-15] MEDS: VANCOMYCIN 2 GM in NA CHLORIDE 0.9% 500 ML IVPB SCH ×2 (09:00→10:24)
[2019-10-15] MEDS: POTASSIUM CL SA 10 MEQ TAB PO SCH (09:00)
--- NOTE | 2019-10-15 10:58 | EKG ---
Test Date: 2019-10-15 Test Time: 09:41:19 Hadoop Architect: YOHANNES MEASUREMENT RESULTS: Intervals: Rate: 94 WI: QRSD: 144 QT: 402 QTc: 502 [place]: P: WI: QRS: -25 T: 207 INTERPRETIVE STATEMENTS: Electronic ventricular pacemaker Compared to ECG 10/11/2019 09:14:31 No significant changes Electronically Signed On 10-15-19 10:58:00 CORRECTIONAL MEDICINE PHYSICIAN by Giorgi Britt
[2019-10-15 12:07] VITALS: BP 117/55; TEMP 96.9
--- NOTE | 2019-10-15 12:41 | P.DS ---
Admission Date: 10/10/19 Discharge Date: 10/15/19 Disposition: ROUTINE DISCHARGE Discharge Condition: GOOD Reason for Admission: RUQ/WILLIAM abdominal pain, cholecystitis Consultations: Industrial Management Teacher General Surgeon Group Work Program Director Procedures: laparoscopic cholecysectomy Brief History of Present Illness: Admission diagnosis Acute cholecystitis Congestive heart failure Hypertension Chronic anti coagulation Discharge diagnosis Acute cholecystitis status post laparoscopic cholecystectomy Systolic congestive heart failure status post AICD Chronic atrial fibrillation on oral anti coagulation Hypertension Healthcare associated pneumonia Obesity Hospital Course: Mr. Bates is 69 y/o male with h/o congestive heart failure, unknown EF, hypertension and hyperlipidemia presented to emergency department with a complaint of abdominal pain. Initial evaluation with CT abdomen showed inflamed gallbladder. His bilirubin was elevated on presentation, requiring further evaluation. Right upper quadrant ultrasound showed multi stone cholelithiasis with wall thickening, finding suspicious for acute cholecystitis. Patient was evaluated by buyer planner for possibly MRCP/ERCP; however, procedure was deferred and he was cleared laparoscopic cholecystectomy. He was evaluated by queen's counsel and echocardiogram showed LVEF of 40-45% which was an improvement from patient's known EF of ~ 20%. Patient is status post AICD. Patient was cleared by queen's counsel for laparoscopic cholecystectomy. Given h/o chronic atrial fibrillation, he was on Xarelto prior to admission. Xarelto was discontinued on presentation, patient was initiated on Lovenox which was held prior to laparoscopic cholecystectomy. He had a successful laparoscopic cholecystectomy and progressed postoperatively. He is tolerating oral intake and is status post multiple bowel movements. He has been initiated on Xarelto. He was also treated for healthcare associated pneumonia which he did improve. He is currently euvolemic and hemodynamically stable for discharge. He will follow up with the PCP, queen's counsel and general surgeon outpatient. Vital Signs/Physical Exam: Temp Pulse Resp BP Pulse Ox 96.9 F 99 H 20 117/55 L 99 10/15/19 12:06 10/15/19 12:06 10/15/19 12:06 10/15/19 12:10/15/19 12:06 General: Alert, In no apparent distress, Obese HEENT: Atraumatic, PERRLA, EOMI Neck: Supple, JVD not distended Respiratory: Clear to auscultation bilaterally, Normal air movement Cardiovascular: Regular rate/rhythm, Normal S1 S2 Gastrointestinal: Normal bowel sounds, No tenderness Musculoskeletal: No tenderness Integumentary: No rashes Neurological: Normal speech, Normal tone, Normal affect Lymphatics: No axilla or inguinal lymphadenopathy Laboratory Data at Discharge: WBC 7.5 K/uL (4.3-10.9) 10/15/19 05:18 Hgb 11.4 g/dL (13.6-17.9) L 10/15/19 05:18 Hct 32.4 % (39.6-49.0) L 10/15/19 05:18 Plt Count 206 K/uL (152-406) D 10/15/19 05:18 PT 15.4 SECONDS (9.5-12.5) H 10/11/19 03:47 INR 1.32 10/11/19 03:47 APTT 34.3 SECONDS (24.3-36.9) 10/11/19 03:47 Sodium 138 mmol/L (136-145) 10/15/19 05:18 Potassium 3.8 mmol/L (3.5-5.1) 10/15/19 05:18 BUN 18 mg/dL (7-18) 10/15/19 05:18 Creatinine 1.08 mg/dL (0.55-1.3) 10/15/19 05:18 Glucose 107 mg/dL (74-106) H 10/15/19 05:18 Phosphorus 2.8 mg/dL (2.5-4.9) 10/11/19 03:47 Magnesium 2.4 mg/dL (1.8-2.4) 10/15/19 05:18 Total Bilirubin 1.0 mg/dL (0.2-1.0) 10/14/19 03:54 AST 87 U/L (15-37) H 10/14/19 03:54 ALT 37 U/L (12-78) 10/14/19 03:54 Alkaline Phosphatase 36 U/L (45-117) L 10/14/19 03:54 Troponin I 0.02 ng/mL (0.0-0.045) 10/15/19 09:45 Amylase 20 U/L (25-115) L 10/11/19 03:47 Lipase 39 U/L (73-393) L 10/11/19 03:47 Home Medications: Furosemide [Lasix*] 40 mg PO BID 10/10/19 Levothyroxine [Synthroid*] 50 mcg PO DAILY 10/10/19 Losartan Potassium 100 mg PO DAILY 10/10/19 Potassium Chloride 20 meq PO DAILY 10/10/19 Pravastatin Sodium 40 mg PO DAILY 10/10/19 Rivaroxaban [Xarelto*] 20 mg PO DAILY 10/10/19 Amox/Clavulanate [Augmentin 875-125 Tab] 1 each PO BID #12 tab 10/14/19 Codeine/APAP [Tylenol W/Codeine #3 tab] 1 tab PO Q4HP PRN #30 tab 10/14/19 Metoprolol Tartrate [Lopressor*] 25 mg PO BID 6AM 6PM #60 tab 10/15/19 New Medications: Amox/Clavulanate [Augmentin 875-125 Tab] 1 each PO BID #12 tab Codeine/APAP [Tylenol W/Codeine #3 tab] 1 tab PO Q4HP PRN #30 tab PRN Reason: Pain Metoprolol Tartrate [Lopressor*] 25 mg PO BID 6AM 6PM #60 tab Patient Discharge Instructions: may take showers with dressing off. HUI to bulb suction, record output q24h Diet: AHA Activity: No lifting more than 10 lbs Followup: Colin Paul MD [ACTIVE - CAN ADMIT] - 1 Week (Call to schedule an appointment) Al Parsons MD [ACTIVE - CAN ADMIT] - 1 Week Cheo Ashley MD [ACTIVE - CAN ADMIT] - 1 Week
[2019-10-15 13:26] VITALS: O2SAT 95
== END 2019-10-15 16:17 | disposition home or self-care (01) | DRG 417 ==
LOC: ER 22:06 → ERHOLD 10-10 04:46 → 4TH 10-10 04:48
PROVIDERS: ADMIT Internal Medicine; ATTEND Hospitalist
PROC: 0FT44ZZ Resection of Gallbladder, Percutaneous Endoscopic Approach (ICD-10-PCS; principal; 2019-10-12 12:45)
DX: K80.00 Calculus of gallbladder with acute cholecystitis without obstruction (principal); I50.23 Acute on chronic systolic (congestive) heart failure; Z68.42 Body mass index [BMI] 45.0-49.9, adult; E87.2 Acidosis; I11.0 Hypertensive heart disease with heart failure; E78.5 Hyperlipidemia, unspecified; E03.9 Hypothyroidism, unspecified; E78.2 Mixed hyperlipidemia; I25.10 Atherosclerotic heart disease of native coronary artery without angina pectoris; Z95.0 Presence of cardiac pacemaker; Z79.01 Long term (current) use of anticoagulants; E66.01 Morbid (severe) obesity due to excess calories; I70.0 Atherosclerosis of aorta
CPT/HCPCS: 36415; 71046; 71275; 74177; 76700; 80048; 80053; 80076; 81003; 81015; 82150; 82248; 83605; 83690; 83735; 84100; 84145; 84484; 85025; 85610; 85730; 87070; 87205; 88304; 93005; 93306; 94760; 96361; 96374; 96375; 97110; 97116; 97161; 97530; 99285; J0696; J1170; J1650; J1940; J2250; J2270; J2370; J2405; J2543; J2550; J2704; J2710; J3010; J7030; J7040; Q9967

== ENCOUNTER 2024-11-07 01:10 | Emergency (ER) | payer OTHER, BC ==
[2024-11-07 02:08] LABS: Absolute Eosinophils 0.2 K/uL (0-0.5); Absolute Lymphocytes (CBC) 1.5 K/uL (0.7-4.9); Absolute Neutrophil 4.6 K/uL (1.8-8.0); Basophils % 0.7 % (0-1.3); Eosinophils % 2.1 % (0-4.4); Hematocrit 34.5 % (39.6-49.0); Hemoglobin 12.4 g/dL (13.6-17.9); Lymphocytes % 21.3 % (15.3-44.8); MCH 33.1 pg (27.0-35.0); MCHC 35.9 g/dL (32.0-36.0); MPV 8.3 fL (7.6-11.3); Monocytes % 13.3 % (3.3-12.3); Neutrophils % 62.6 % (41.7-73.7); Platelets 139 thou/uL (152-406); RBC Red Blood Cell Count 3.75 M/uL (4.33-5.43); Red Cell Distribution Width 13.6 % (12.1-15.2)
[2024-11-07 02:20] LABS: PT Prothrombin Time 17.7 SECONDS (9.4-12.5); Protime INR 1.69
[2024-11-07 02:32] LABS: Albumin 2.9 g/dL (3.4-5.0); Albumin/Globulin Ratio 0.7 (1.1-1.8); Anion Gap 9.7 mEq/L (5.0-15.0); Bilirubin Direct 0.2 mg/dL (0-0.2); Bilirubin Indirect, Calculated 0.4 mg/dL (0.2-0.8); Bilirubin Total 0.6 mg/dL (0.2-1.0); Globulin 3.9 g/dL (2.3-3.5); Potassium 3.7 mEq/L (3.5-5.1); Protein, Total 6.8 g/dL (6.4-8.2); Troponin High Sensitivity 19.6 pg/mL (<58.9)
--- NOTE | 2024-11-07 03:47 | ER ---
Nurse's Notes [facility] Name: Itz Bates Age: 74 yrs Sex: Male : 1950 Arrival Date: 11/07/2024 Time: 01:10 Bed 3 Private MD: Diagnosis: Syncope Near;Hypotension, resolved Presentation: 11/07 01:15 Chief complaint: Patient states: LOW BLOOD PRESSURE. WAS WALKING TO THE KITCHEN TO PLUG jj7 UP HIS PHONE WHEN HE STATES HE LOST CONTROL OF HIS LEGS AND FELL TO THE GROUND X2. NO LOC. NO OTHER COMPLAINTS. RECENTLY LOST A LOT OF BLOOD DUE TO A LAC TO HIS RIGHT FOOT THAT BLEED FOR AWHILE. STARTED A NEW MEDICINE (GABAPENTIN) 3 DAYS AGO EMS states: STARTED NEW MEDS 3 DAYS AGO. TOOK ALL OF HIS NEW MEDS AND PLUS HIS BP MEDS. CALLED EMS BECAUSE HIS LEGS GAVE OUT ON HIM 2 TIMES AND HE HAS NEVER HAD THAT HAPPEN BEFORE. Care prior to arrival: Medication(s) given: Normal saline infusion, 1000 mL, IV initiated. 20 GA, in the right antecubital area. Mechanism of Injury: Fall from standing position. Trauma event details: Injury occurred in the [facility], Injury occurred: at home. Injury occurred: November 07, 2024. 01:15 Acuity: RAMON 3 j7 01:15 Method Of Arrival: EMS: [facility] jj7 01:30 Coronavirus screen: Client denies travel out of the [place] in the last 14 days. Ebola ha1 Screen: No symptoms or risks identified at this time. Initial Sepsis Screen: Does the patient meet any 2 criteria? No. Patient's initial sepsis screen is negative. Does the patient have a suspected source of infection? No. Patient's initial sepsis screen is negative. Risk Assessment: Do you want to hurt yourself or someone else? Patient reports no desire to harm self or others. Onset of symptoms was November 07, 2024. Historical: - Allergies: 01:43 NKDA; jj7 - PMHx: 01:43 CHF; Hypertension; Pacemaker; Diabetes mellitus; jj7 - PSHx: 01:43 PACEMAKER (Pacemaker); jj7 - Immunization history:: Adult Immunizations up to date, . - Infectious Disease History:: Denies. - Family history:: not pertinent. - Social history:: Smoking status: Patient denies any tobacco usage or history of. Patient/guardian denies using alcohol, street drugs, IV drugs. Screenin:15 Abuse screen: Denies threats or abuse. Tuberculosis screening: No symptoms or risk jj7 factors identified. 01:41 [facility] ED Fall Risk Assessment (Adult) History of falling in the last 3 months, jj7 including since admission Yes- single mechanical fall (1 pt) Confusion or Disorientation No (0 pts) Intoxicated or Sedated No (0 pts) Impaired Gait Yes (1 pt) Mobility Assist Device Used No (0 pt) Altered Elimination No (0 pt) Score/Fall Risk Level 0 - 2 = Low Risk Oriented to surroundings, Maintained a safe environment, Educated pt \T\ family on fall prevention, incl call for assistance when getting out of bed, Assessed \T\ reinforced patient's understanding of fall precautions. Nutritional screening: No deficits noted. Primary Survey: 01:15 NO uncontrolled hemorrhage observed. A: The client is awake and alert. The airway is jj7 patent. The client is alert. Airway: patent. Breathing/Chest: Spontaneous respiratory effort, equal unlabored respirations, breath sounds clear bilaterally, regular pattern, symmetrical chest rise and fall. Respiratory effort: spontaneous, unlabored, Breath sounds: clear, bilaterally. Respiratory pattern: regular, Chest inspection: symmetrical rise and fall of the chest. Circulation: No external hemorrhage present. Regular and strong central pulse, skin warm/dry/normal color. Disability Client is alert. Exposure/Environment: There is no evidence of uncontrolled external bleeding. A warming method has been applied: A warm blanket has been provided to the patient. 02:07 Reassessment Alertness and Airway: Awake and alert. The airway is patent. Breathing: ha1 Spontaneous respiratory effort, equal unlabored respirations, breath sounds clear bilaterally, regular pattern with symmetrical chest rise and fall. Circulation: No external hemorrhage noted. Regular and strong central pulse, skin warm/dry/normal color. Assessment: 01:15 General: Appears in no apparent distress. comfortable, Behavior is calm, cooperative, jj7 appropriate for age. Pain: Denies pain. Cardiovascular: Denies chest pain, lightheadedness, shortness of breath, Patient's skin is warm and dry. Respiratory: No deficits noted. Musculoskeletal: Reports weakness in right leg and left leg. 02:00 Reassessment: Patient and/or family updated on plan of care and expected duration. Pain jj7 level reassessed. Patient is alert, oriented x 3, equal unlabored respirations, skin warm/dry/pink. 03:00 Reassessment: No changes from previously documented assessment. jj7 Vital Signs: 01:15 BP 111 / 74; Pulse 77; Resp 17; Pulse Ox 99% ; Weight 139.71 kg; Height 6 ft. 1 in. ; jj7 Pain 0/10; 01:30 Temp 97.8(O); ha1 02:30 BP 114 / 64; Pulse 77; Resp 17; Pulse Ox 99% ; jj7 03:09 BP 114 / 87; Pulse 81; Resp 17 S; Pulse Ox 98% on R/A; ha1 03:43 BP 125 / 67; Pulse 83; Resp 17; Temp 97.9; Pulse Ox 98% ; Pain 0/10; jj7 01:15 Body Mass Index 40.64 (139.71 kg, 185.42 cm) jj7 01:15 Pain Scale: Adult jj7 03:43 Pain Scale: Adult jj7 [place] Coma Score: 01:15 Eye Response: spontaneous(4). Motor Response: obeys commands(6). Verbal Response: jj7 oriented(5). Total: 15. Trauma Score (Adult): 01:15 Eye Response: spontaneous(1); Verbal Response: oriented(1); Motor Response: obeys jj7 commands(2); Systolic BP: > 89 mm Hg(4); Respiratory Rate: 10 to 29 per min(4); [place] Score: 15; Trauma Score: 12 ED Course: 01:13 Patient arrived in ED. jj6 01:15 Patient has correct armband on for positive identification. Bed in low position. Call jj7 light in reach. Side rails up X2. Adult w/ patient. 01:15 No provider procedures requiring assistance completed. jj7 01:20 Tanner Spencer MD is Attending Physician. rt 01:23 Franck Ye RN is Primary Nurse. jj7 01:35 Triage completed. jj7 01:39 XRAY Chest (1 view) In Process Unspecified. EDMS 01:46 Maintain EMS IV. Dressing intact. Good blood return noted. Site clean \T\ dry. Gauge \T\ jj 7 site: 20G RIGHT AC. Flushed with 10 mL NS. 02:07 Basic Metabolic Panel Sent. ha1 02:07 CBC with Diff Sent. ha1 02:07 LFT's Sent. ha1 02:07 PT-INR Sent. 02:07 Troponin HS Sent. ha1 02:07 Type And Screen Sent. ha1 02:08 Thermoregulation: warm blanket given to patient. ha1 02:08 Patient maintains SpO2 saturation greater than 95% on room air. ha1 04:00 Provided Education on: DISCHARGE INSTRUCTIONS. jj7 04:00 IV discontinued, intact, bleeding controlled, No redness/swelling at site. Pressure jj7 dressing applied. Administered Medications: No medications were administered Medication: 01:43 VIS not applicable for this client. jj7 Outcome: 03:46 Discharge ordered by . rt 04:00 Discharged to home ambulatory, with family, [email or web address] 04:00 Condition: improved 04:00 Discharge instructions given to patient, family, Instructed on discharge instructions, Demonstrated understanding of instructions, 04:08 Patient left the ED. Signatures: Dispatcher [employer] EDMS Joselyn Crawford jj6 Elle Hercules RN RN ha1 Franck Ye RN RN jj7 Tanner Spencer MD MD rt
--- NOTE | 2024-11-07 03:47 | EDPHYS ---
Physician Documentation [facility] Name: Itz Bates Age: 74 yrs Sex: Male : 1950 Arrival Date: 11/07/2024 Time: 01:10 Bed 3 Private MD: ED Physician Tanner Spencer HPI: 11/07 05:23 This 74 yrs old Male presents to ER via EMS with complaints of Fall Injury. rt 05:23 Patient presents to the ED with near syncope, reported hypotension by EMS. Patient was rt given a liter of fluids by EMS which resolved the hypotension and the patient's symptoms. He denies any complaints currently. He he did cut the top of his right foot with some broken glass yesterday, reported significant amount of bleeding but states that it was not pulsatile or arterial. Had stitches at a urgent care which did stop the bleeding. He denies other acute complaints at this time, symptoms are moderate in severity, no other aggravating alleviating factors.. Historical: - Allergies: 01:43 NKDA; jj7 - PMHx: 01:43 CHF; Hypertension; Pacemaker; Diabetes mellitus; jj7 - PSHx: 01:43 PACEMAKER (Pacemaker); jj7 - Immunization history:: Adult Immunizations up to date, . - Infectious Disease History:: Denies. - Family history:: not pertinent. - Social history:: Smoking status: Patient denies any tobacco usage or history of. Patient/guardian denies using alcohol, street drugs, IV drugs. ROS: 05:23 Constitutional: Negative for fever, chills, and weight loss, Cardiovascular: Negative rt for chest pain, palpitations, and edema, Respiratory: Negative for shortness of breath, cough, wheezing, and pleuritic chest pain, Abdomen/GI: Negative for abdominal pain, nausea, vomiting, diarrhea, and constipation, Skin: Negative for injury, rash, and discoloration, 05:23 Neuro: Positive for near syncope, Negative for loss of consciousness, Exam: 05:23 Constitutional: This is a well developed, well nourished patient who is awake, alert, rt and in no acute distress. Head/Face: Normocephalic, atraumatic. Chest/axilla: Normal chest wall appearance and motion. Nontender with no deformity. No lesions are appreciated. Cardiovascular: Regular rate and rhythm with a normal S1 and S2. No gallops, murmurs, or rubs. Normal PMI, no JVD. No pulse deficits. Respiratory: Lungs have equal breath sounds bilaterally, clear to auscultation and percussion. No rales, rhonchi or wheezes noted. No increased work of breathing, no retractions or nasal flaring. Abdomen/GI: Soft, non-tender, with normal bowel sounds. No distension or tympany. No guarding or rebound. No evidence of tenderness throughout. Skin: Warm, dry with normal turgor. Normal color with no rashes, no lesions, and no evidence of cellulitis. 05:23 ECG was reviewed by the Attending Physician. 05:23 Musculoskeletal/extremity: Well-approximated sutured wound to the top of the right foot, no active bleeding. Vital Signs: 01:15 BP 111 / 74; Pulse 77; Resp 17; Pulse Ox 99% ; Weight 139.71 kg; Height 6 ft. 1 in. ; jj7 Pain 0/10; 01:30 Temp 97.8(O); ha1 02:30 BP 114 / 64; Pulse 77; Resp 17; Pulse Ox 99% ; jj7 03:09 BP 114 / 87; Pulse 81; Resp 17 S; Pulse Ox 98% on R/A; ha1 03:43 BP 125 / 67; Pulse 83; Resp 17; Temp 97.9; Pulse Ox 98% ; Pain 0/10; jj7 01:15 Body Mass Index 40.64 (139.71 kg, 185.42 cm) jj7 01:15 Pain Scale: Adult jj7 03:43 Pain Scale: Adult jj7 Leonides Coma Score: 01:15 Eye Response: spontaneous(4). Motor Response: obeys commands(6). Verbal Response: jj7 oriented(5). Total: 15. Trauma Score (Adult): 01:15 Eye Response: spontaneous(1); Verbal Response: oriented(1); Motor Response: obeys jj7 commands(2); Systolic BP: > 89 mm Hg(4); Respiratory Rate: 10 to 29 per min(4); [place] Score: 15; Trauma Score: 12 MDM: 01:20 Medical Screening Exam initiated rt 05:23 Differential diagnosis: Intravascular volume depletion, symptomatic anemia, rt dysrhythmia, ACS, near syncope. Data reviewed: vital signs, nurses notes, lab test result(s), EKG, radiologic studies. Consideration of Admission/Observation Escalation of care including admission/observation considered. Patient normotensive throughout stay in the ED without symptoms, is ambulatory without difficulty. Discussed elevated creatinine with the patient, reportedly he was aware of some degree of renal dysfunction, unclear to what extent. He states that he is strongly desirous of discharge, will send patient home to follow-up as an outpatient. Strict return precautions were discussed.. Independent interpretation of the following test(s) in the Emergency Department X-Ray: My interpretation is No infiltrate seen on interpretation of x-ray images. Care significantly affected by the following chronic conditions: Congestive Heart Failure. Counseling: I had a detailed discussion with the patient and/or guardian regarding the historical points, exam findings, and any diagnostic results supporting the discharge/admit diagnosis, lab results, radiology results, the need for outpatient follow up, to return to the emergency department if symptoms worsen or persist or if there are any questions or concerns that arise at home. Response to treatment: the patient's symptoms have markedly improved after treatment. 11/07 01:21 Order name: Basic Metabolic Panel; Complete Time: 03:13 rt 11/07 01:21 Order name: CBC with Diff; Complete Time: 03:13 rt 11/07 01:21 Order name: LFT's; Complete Time: 03:13 rt 11/07 01:21 Order name: PT-INR; Complete Time: 03:13 rt 11/07 01:21 Order name: Troponin HS; Complete Time: 03:13 rt 11/07 01:21 Order name: Type And Screen rt 11/07 01:21 Order name: XRAY Chest (1 view) rt 11/07 01:21 Order name: EKG; Complete Time: 01:22 rt 11/07 01:21 Order name: Cardiac monitoring; Complete Time: :47 rt 11/07 01:21 Order name: EKG - Nurse/Tech; Complete Time: 01:47 rt 11/07 01:21 Order name: IV Saline Lock; Complete Time: 01:47 rt 11/07 01:21 Order name: Labs collected and sent; Complete Time: 02:07 rt 11/07 01:21 Order name: O2 Per Protocol; Complete Time: 01:47 rt 11/07 01:21 Order name: O2 Sat Monitoring; Complete Time: 01:47 rt EC:23 Rate is 72 beats/min. Rhythm is regular, Paced with No ectopy. QRS interval is normal. rt QT interval is normal. No Q waves. Administered Medications: No medications were administered Disposition Summary: 11/07/24 03:46 Discharge Ordered Notes: Location: Home rt Problem: new rt Symptoms: have improved rt Condition: Stable rt Diagnosis - Syncope Near rt - Hypotension, resolved rt Followup: rt - With: Private Physician - When: 2 - 3 days - Reason: Followup: rt - With: Emergency Department - When: As needed - Reason: Worsening of condition Discharge Instructions: - Discharge Summary Sheet rt - Near-Syncope rt Forms: - Medication Reconciliation Form rt - Antibiotic Education rt - Prescription Opioid Use rt - Patient Portal Instructions rt - Leadership Thank You Letter rt Signatures: Dispatcher [employer] Franck Bell RN RN jj7 Tanner Spencer MD MD rt
[2024-11-07 04:15] VITALS: O2SAT 98
[2024-11-07 04:17] VITALS: BP 125/67; TEMP 97.9
--- NOTE | 2024-11-07 04:54 | RAD REPORT ---
R CHEST 1 VIEW CLINICAL INDICATION: Hypotension COMPARISON: No prior images available for comparison at time of interpretation. FINDINGS: SUPPORT DEVICES: Left-sided pacemaker/AICD and sternotomy wires in place. LUNGS/PLEURAL SPACES: Left basilar opacity could represent atelectasis/small pleural effusion versus epidural fat. Right lung is clear. No pneumothorax. HEART/MEDIASTINUM: Cardiomegaly. BONES/UPPER ABDOMEN/SOFT TISSUES: No acute findings. IMPRESSION: Left basilar opacity could represent atelectasis/small pleural effusion versus epidural fat. Electronically signed by: Delmy Tim MD 11/07/2024 03:37 AM [facility] Due to temporary technical issues with the PACS[employer] reporting system, reports are being angelina d by the in-house radiologist without review as a courtesy to ensure prompt reporting the interpreting radiologist is fully responsible for the content of the report. Transcribed Date/Time: 11/07/2024 4:53 AM
--- NOTE | 2024-11-10 12:52 | EKG ---
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
== END 2024-11-07 04:08 | disposition home or self-care (01) ==
LOC: ER 01:10
DX: R55 Syncope and collapse (principal); I10 Essential (primary) hypertension; I50.9 Heart failure, unspecified; Z95.0 Presence of cardiac pacemaker
CPT/HCPCS: 36415; 71045; 80048; 80076; 84484; 85025; 85610; 86850; 86900; 86901; 93005; 99284